=== PATIENT | male | born 1950 | race Caucasian/White ===

== ENCOUNTER 2023-08-24 19:55 | Inpatient (IN) | payer MEDICARE, OTHER, SELFPAY ==
--- NOTE | ~2023-08-24 | CT_ITS ---
EXAMINATION: CT abdomen pelvis w con DATE: 08/24/2023 21:22 INDICATION: n/v/d, generalized weakness TECHNIQUE: Computed tomography (CT) of the abdomen and pelvis was performed with 100 mL Omnipaque-350 intravenous contrast. Automated exposure control and iterative reconstruction technique were employe d. The dose-length product was 638.44 mGy-cm. COMPARISON: None. FINDINGS: Lower thorax: Pacer leads terminate in good position. Cardiomegaly. Calcified areas of chronic myocar dial infarction. Dependent atelectasis. Liver: Enlarged. Diffuse fatty infiltration. Biliary/Gallbladder: Gallbladder is normal. No bile duct dilation. Pancreas: No mass or duct dilation. Spleen: Normal. Adrenals:No mass. Kidneys: No suspicious mass, obstructing stone, or hydronephrosis. Simple left midpole cyst. Exophyti c 11 mm hemorrhagic lower pole cyst. Bilateral subcentimeter hypodensities, too small to characterize but most likely represent cysts. GI tract: Mild distal esophageal and gastric wall edema. No small or large bowel dilation. Normal shante endix. Mesentery/Peritoneum: No ascites, mass, or free air. Retroperitoneum: No mass. Atherosclerotic abdominal aortic and/or arterial calcifications. Pelvis: Moderate bladder wall thickening. Prostate enlargement and prostate brachytherapy implants. Soft Tissues: Soft tissues and body wall unremarkable. Bones: No acute osseous finding. IMPRESSION: Mild esophagitis/gastritis. Hepatomegaly with steatosis. Cystitis versus urinary bladder wall thickening from outlet obstruction. Reviewed, dictated and finalized at location K.
--- NOTE | ~2023-08-24 | XR_ITS ---
EXAMINATION: XR chest 2V Exam Date/Time: 08/24/2023 20:40 CDT HISTORY: weakness WITH N/V X 2 DAYS Comparison: None. RESULT: Lines, tubes, and devices: Left chest pacer/AICD, with intact leads. Coronary stenting. Lungs and pleura: Moderate diffuse reticular opacities and mild cuffing. Cardiomediastinal silhouette: Stable. Other: No acute osseous or upper abdominal finding. IMPRESSION: Pulmonary opacities may represent mesentery bronchiolitis or interstitial edema. Reviewed, dictated and finalized at location K. IMPRESSION: Pulmonary opacities may represent mesentery bronchiolitis or interstitial edema .
--- NOTE | ~2023-08-24 | XR_ITS ---
EXAMINATION: XR chest 1V portable DATE: 08/29/2023 11:00 INDICATION: Pulmonary edema. TECHNIQUE: A single frontal view of the chest was obtained. COMPARISON: Chest 2 views 08/24/2023, CT abdomen and pelvis 08/24/2023 FINDINGS: There is a diffuse interstitial pattern, consistent mild pulmonary edema. There are airspac e opacities are moderate midlung zone. There is a small right pleural effusion. No pneumothorax. Card iomegaly is noted. There is a left chest wall pacer/defibrillator with leads in the right atrium and right ventricle. IMPRESSION: 1. Mild pulmonary edema. 2. Worsened airspace opacities in right midlung zone, consistent with atelectasis versus pneumonia. 3. New small right pleural effusion. 4. Cardiomegaly. Reviewed, dictated and finalized at location A. IMPRESSION: 1. Mild pulmonary edema. 2. Worsened airspace opacities in right midlung zone, consistent with atelectas is versus pneumonia. 3. New small right pleural effusion. 4. Cardiomegaly.
--- NOTE | ~2023-08-24 | US_ITS ---
EXAMINATION: US abdomen limited DATE: 08/28/2023 14:18 INDICATION: Abdominal pain, nausea and vomiting and elevated liver enzymes. TECHNIQUE: Multiple grayscale and Doppler ultrasound images of the abdomen were obtained. COMPARISON: CT dated 08/24/2023 FINDINGS: The pancreatic head and body are normal in appearance. The pancreatic tail is not visualized. Liver has normal echogenicity and contour, with a smooth surface. No liver lesion identified. No intrahepat ic biliary duct dilation suspected. Portal venous flow was seen in the hepatopetal, normal direction but with increased portal venous pulsatility which can be seen with congestive heart failure, tricusp id regurgitation or other cause of elevated right heart pressure. There is a tiny amount of perihepat ic ascites. Visualized proximal to mid inferior vena cava and proximal aorta are normal. There appear s to be some mild gallbladder wall thickening. There is no cholelithiasis. The common bile duct measu res 5 mm, which is normal. Sonographic Dash sign was reported as negative by the blasting gang miner. IMPRESSION: 1. Borderline gallbladder wall thickening without evident cholelithiasis or sonographic Dash sign t o suggest acute cholecystitis. This is nonspecific and can be seen with chronic cholecystitis, conges tive heart failure, liver disease, renal failure, sepsis or other generalized edema forming states. W ould favor congestive heart failure given the enlargement of the heart on prior CT and the increased portal venous pulsatility. 2. Trace amount of perihepatic ascites. Reviewed, dictated and finalized at location A. IMPRESSION: 1. Borderline gallbladder wall thickening without evident cholelithiasis or son ographic Dash sign to suggest acute cholecystitis. This is nonspecific and ca n be seen with chronic cholecystitis, congestive heart failure, liver disease, renal failure, sepsis or other generalized edema forming states. Would favor co ngestive heart failure given the enlargement of the heart on prior CT and the i ncreased portal venous pulsatility. 2. Trace amount of perihepatic ascites.
--- NOTE | 2023-08-24 19:43 | ECG_ITS ---
SEE SCANNED COPY FOR CONFIRMED REPORT MTDD
[2023-08-24 20:02] VITALS: BP 106/59; PULSE 65; RESP 17; TEMP 37.1; O2SAT 95
--- NOTE | 2023-08-24 20:05 | ECG_ITS ---
SEE SCANNED COPY FOR CONFIRMED REPORT MTDD
--- NOTE | 2023-08-24 20:15 | PC.NURSE ---
Registration incorrectly entered patient information.
--- NOTE | 2023-08-24 20:28 | ED.WEAKNESS ---
HPI - Weakness General Chief complaint: Weakness Stated complaint: Weakness Time Seen by Provider: 08/24/23 20:05 History of Present Illness HPI Narrative: 72-year-old male with reported history of hypertension, hyperlipidemia, diabetes, CAD, mi in 2003, s/p stent placement and pacemaker placement presents to emergency department for generalized weakness. Patient is a poor historian and is not here with family. It is difficult to get a thorough history. He states he has been having generalized weakness, nausea, vomiting and diarrhea intermittently for 2 days. He presents with discharge paperwork from [facility] where he was discharged within the past week. Discharge paperwork has instructions regarding a CVA. Upon questioning, patient states he went to his PCP's office a week ago for nausea and vomiting, while he was being evaluated by his PCP he ?fell out?. States he was sent in an ambulance to [facility] but is unsure what he was diagnosed with. Patient is reporting intermittent episodes of nausea and vomiting as well as diarrhea. He is complaining for dizziness which he describes as lightheadedness as opposed to vertigo. He denies chest pain or shortness of breath, focal abdominal pain, fever, cough or congestion, dysuria or hematuria. Denies prior abdominal surgeries. Related Data Home Medications Medication Instructions Recorded Confirmed apixaban 5 mg tablet 5 mg PO BID 08/24/23 08/24/23 aspirin 81 mg tablet 81 mg PO DAILY 08/24/23 08/24/23 bumetanide 1 mg tablet 1 mg PO BID 08/24/23 digoxin 125 mcg (0.125 mg) tablet 125 mcg PO DAILY 08/24/23 empagliflozin 25 mg tablet 25 mg PO DAILY 08/24/23 eplerenone 25 mg tablet 25 mg PO DAILY 08/24/23 gabapentin 300 mg tablet 300 mg PO TID 08/24/23 08/24/23 imiquimod 5 % topical cream packet 1 applic topical 2XW 08/24/23 insulin aspart U-100 100 unit/mL 15 unit subcut Q12H 08/24/23 subcutaneous solution isosorbide mononitrate 30 mg 30 mg PO DAILY 08/24/23 tablet,extended release 24 hr levothyroxine 100 mcg tablet 100 mcg PO DAILY 08/24/23 lisinopril 10 mg tablet 10 mg PO DAILY 08/24/23 metoprolol succinate 100 mg 100 mg PO DAILY 08/24/23 tablet,extended release 24 hr niacin 500 mg tablet (Niacor) mg 08/24/23 nitroglycerin 0.4 mg sublingual 0.4 mg sublingual Q5M PRN Chest 08/24/23 tablet Pain omega-3 fatty acids 1,000 mg PO DAILY 08/24/23 omeprazole 20 mg capsule,delayed 20 mg PO BID 08/24/23 release polyethylene glycol 3350 17 17 g PO DAILY 08/24/23 gram/dose oral powder rosuvastatin 40 mg tablet 40 mg PO DAILY 08/24/23 Allergies Allergy/AdvReac Type Severity Reaction Status Date / Time atorvastatin Allergy Muscle Pain Verified 08/24/23 20:10 carvedilol [From Coreg] Allergy Hypotension Verified 08/24/23 20:10 codeine AdvReac Other Verified 08/24/23 20:10 metformin AdvReac Other Verified 08/24/23 20:10 Review of Systems Review of Systems: CONSTITUTIONAL: Denies fever, chills, or sweats. EYES: Denies visual changes, redness, or discharge. ENT: Denies rhinorrhea, congestion, sore throat, or otalgia. CARDIOVASCULAR: Denies chest pain, palpitations, or edema. RESPIRATORY: Denies cough or dyspnea. GASTROINTESTINAL: See HPI GENITOURINARY: Denies dysuria or hematuria. SKIN: Denies rash or itching. MUSCULOSKELETAL: Denies back pain, joint pain, or myalgia. NEUROLOGIC: Denies headache, numbness, or weakness. PSYCHIATRIC: Denies anxiety or depression. Exam Narrative: GENERAL: Well-appearing, well-nourished, and in no acute distress. HEAD: Normocephalic, atraumatic. EYES: PERRLA and EOMI. ENT: Nares clear, no rhinorrhea or epistaxis. Mucous membranes moist. NECK: Supple. CHEST: Clear to auscultation. No respiratory distress. HEART: Regular rate and rhythm. No murmur heard. Normal peripheral pulses. ABDOMEN: Soft, nontender, nondistended, normal active bowel sounds. No rebound, guarding or rigidity. EXTREMITIES: Normal range of motion. No edema. SKIN:
[2023-08-24] MEDS: SODIUM CHLORIDE 0.9% IV 1,000 ML 999 ML IV CONT ×2 (20:33→20:34)
[2023-08-24 20:43] LABS: Basophils Percent Auto 0.3 % (0.2-1.2); Eosinophils Absolute Auto 0.1 K/mm3 (0-0.3); Eosinophils Percent Auto 0.9 % (0-4.4); Hematocrit 47.9 % (42.0-52.0); Hemoglobin 15.4 g/dL (14.0-18.0); Immature Granulocyte Absolute 0.01 K/mm3 (0.00-0.031); Immature Granulocyte Percent A 0.2 % (0-0.5); Immature Platelet Fraction Pct 4.4 % (0.9-11.2); Lymphocytes Percent Auto 3.2 % (18.3-44.2); Mean Corpuscular HGB Conc 32.2 g/dl (32-36); Mean Corpuscular Hemoglobin 29.8 pg (26-34); Mean Corpuscular Volume 92.8 fl (80-100); Mean Platelet Volume 11.6 fl (7.4-10.4); Monocytes Absolute Auto 0.3 K/mm3 (0.1-0.6); Monocytes Percent Auto 5.4 % (2.6-8.5); Neutrophils Absolute Auto 5.7 K/mm3 (1.3-6.7); Platelet Count Result 124 k/mm3 (150-375); Red Blood Count 5.16 M/mm3 (4.6-6.20); White Blood Count 6.3 K/mm3 (4.5-10.0)
[2023-08-24 20:52] LABS: Alanine Aminotransferase 17 U/L (6-50); Albumin Level 4.3 g/dL (3.5-5.1); Alkaline Phosphatase 62 U/L (38-126); Anion Gap 10 mmol/L (4-12); Aspartate Amino Transferase 23 U/L (17-59); Bilirubin,Total 0.8 mg/dL (0.2-1.3); Blood Urea Nitrogen 44 mg/dL (9-20); Calcium 8.8 mg/dL (8.4-10.2); Carbon Dioxide 22 mmol/L (22-30); Chloride 103 mmol/L (98-107); Estimated CRCL calculation 38 ml/min; Estimated Glomerular Filt Rate 42; Glucose 257 mg/dL (65-110); INR 1.2; Lipase 72 U/L (23-300); Magnesium 1.9 mg/dL (1.6-2.3); Potassium 4.7 mmol/L (3.4-5.0); Prothrombin Time 16.3 Seconds (11.1-14.7); Sodium 135 mmol/L (137-145)
[2023-08-24 20:53] LABS: Partial Thromboplastin Time 24.8 Seconds (22.3-36.8)
[2023-08-24 21:05] LABS: Lactic Acid Reflex 1.7 mmol/L (0.7-2.0)
[2023-08-24 21:08] LABS: Troponin I 0.046 ng/mL (0.000-0.034)
[2023-08-24 21:38] LABS: Appearance Urine Clear (Clear); Bilirubin Urine Negative (Negative); Blood Urine Negative (Negative); Color Urine Yellow (Yellow); Glucose Urine UA 3+ mg/dL (Negative); Ketones Urine Negative (Negative); Leukocyte Esterase Ur Negative LEU/UL (Negative); Nitrate Urine Negative (Negative); Protein Urine Negative (Negative); Specific Grav Ur 1.024 (1.001-1.035); pH Urine 5.5 (5.0-9.0)
[2023-08-24 21:40] LABS: Add Urine Microscopic? YES
[2023-08-24 22:11] LABS: Influenza A QL RT-PCR Negative (Negative); Influenza B QL RT-PCR Negative (Negative); RSV RNA, RT-PCR Negative (Negative); SARS-CoV-2 RNA PCR Negative (Negative)
[2023-08-24 22:19] VITALS: BP 95/53; PULSE 61; RESP 17; O2SAT 94
[2023-08-24 22:20] VITALS: PULSE 61
--- NOTE | 2023-08-24 23:12 | PM.IMHP ---
H&P: HPI History of Present Illness Date/Time: 08/24/23 23:12 Chief Complaint: generalized malaise Narrative: This is a 72-year-old male with past medical history significant for insulin-dependent diabetes mellitus, congestive heart failure, chronic kidney disease. patient is a poor historian and cannot really give any details about his medical history presents to the emergency room due to nausea vomiting and diarrhea. Preliminary workup was significant for chest x-ray with infiltrates. CT of abdomen and pelvis was low yielding. Patient has been admitted for further evaluation management and treatment. EXAMINATION:? XR chest 2V Exam Date/Time:? 08/24/2023 20:40 CDT HISTORY: weakness WITH N/V X 2 DAYS ? Comparison:? None. RESULT: Lines, tubes, and devices:? Left chest pacer/AICD, with intact leads. Coronary stenting. Lungs and pleura:? Moderate diffuse reticular opacities and mild cuffing. Cardiomediastinal silhouette:? Stable. Other:? No acute osseous or upper abdominal finding. ? IMPRESSION: Pulmonary opacities may represent mesentery bronchiolitis or interstitial edema. EXAMINATION: CT abdomen pelvis w con DATE: 08/24/2023 21:22 INDICATION: n/v/d, generalized weakness TECHNIQUE: Computed tomography (CT) of the abdomen and pelvis was performed with 100 mL Omnipaque-350 intravenous contrast. Automated exposure control and iterative reconstruction technique were employed. The dose-length product was 638.44 mGy-cm. COMPARISON: None. FINDINGS: Lower thorax: Pacer leads terminate in good position. Cardiomegaly. Calcified areas of chronic myocardial infarction. Dependent atelectasis. Liver: Enlarged. Diffuse fatty infiltration.? Biliary/Gallbladder: Gallbladder is normal. No bile duct dilation. Pancreas: No mass or duct dilation. Spleen: Normal. Adrenals:No mass. Kidneys: No suspicious mass, obstructing stone, or hydronephrosis. Simple left midpole cyst. Exophytic 11 mm hemorrhagic lower pole cyst. Bilateral subcentimeter hypodensities, too small to characterize but most likely represent cysts. GI tract: Mild distal esophageal and gastric wall edema. No small or large bowel dilation. Normal appendix. Mesentery/Peritoneum: No ascites, mass, or free air. Retroperitoneum: No mass. Atherosclerotic abdominal aortic and/or arterial calcifications. Pelvis: Moderate bladder wall thickening. Prostate enlargement and prostate brachytherapy implants. Soft Tissues: Soft tissues and body wall unremarkable. Bones:? No acute osseous finding. IMPRESSION: Mild esophagitis/gastritis. Hepatomegaly with steatosis. Cystitis versus urinary bladder wall thickening from outlet obstruction. Review of Systems Review of Systems: Nausea, vomiting, diarrhea Meds Home Medications and Allergies Home Medications Medication Instructions Recorded Confirmed Type apixaban 5 mg tablet 5 mg PO BID 08/24/23 08/24/23 History aspirin 81 mg tablet 81 mg PO DAILY 08/24/23 08/24/23 History bumetanide 1 mg tablet 1 mg PO BID 08/24/23 History digoxin 125 mcg (0.125 mg) tablet 125 mcg PO DAILY 08/24/23 History empagliflozin 25 mg tablet 25 mg PO DAILY 08/24/23 History eplerenone 25 mg tablet 25 mg PO DAILY 08/24/23 History gabapentin 300 mg tablet 300 mg PO TID 08/24/23 08/24/23 History imiquimod 5 % topical cream packet 1 applic topical 2XW 08/24/23 History insulin aspart U-100 100 unit/mL 15 unit subcut Q12H 08/24/23 History subcutaneous solution isosorbide mononitrate 30 mg 30 mg PO DAILY 08/24/23 History tablet,extended release 24 hr levothyroxine 100 mcg tablet 100 mcg PO DAILY 08/24/23 History lisinopril 10 mg tablet 10 mg PO DAILY 08/24/23 History metoprolol succinate 100 mg 100 mg PO DAILY 08/24/23 History tablet,extended release 24 hr niacin 500 mg tablet (Niacor) mg 08/24/23 History nitroglycerin 0.4 mg sublingual 0.4 mg sublingual Q5M PRN Chest 08/24/23 History tablet Pain omega-3 fatty acids 1,000
[2023-08-24 23:45] VITALS: BP 110/68; PULSE 63; RESP 20; O2SAT 94
[2023-08-24 23:54] LABS: Troponin I 0.058 ng/mL (0.000-0.034)
[2023-08-25] VITALS (23 sets, daily range): BP systolic 92–134; BP diastolic 44–94; PULSE 65–89; RESP 11–20; TEMP 36.2–36.9; O2SAT 94–100; BMI 28.7; BMI 30.1
[2023-08-25] MEDS: SODIUM CHLORIDE 0.9% IV 1,000 ML 999 ML IV CONT (00:16)
[2023-08-25] MEDS: PIPERACILLN/TAZ 3.375GM/NS50ML 3.375 GM/50 ML BAG IVPB (00:16)
[2023-08-25 03:45] LABS: Troponin I 0.065 ng/mL (0.000-0.034)
--- NOTE | 2023-08-25 07:30 | PC.NURSE ---
[facility] breakfast tray ordered
--- NOTE | 2023-08-25 07:40 | PC.NURSE ---
blood sugar was 148 at 0739
[2023-08-25 07:41] LABS: Glucose Point of Care 148 mg/dl (65-105)
--- NOTE | 2023-08-25 11:08 | PM.IMPN ---
Progress Note: A&P Assessment and Plan (1) Nausea & vomiting: Qualifiers: Vomiting type: unspecified Qualified Code(s): R11.2 - Nausea with vomiting, unspecified Code(s): R11.2 - Nausea with vomiting, unspecified Status: Acute (2) Diarrhea: Qualifiers: Diarrhea type: unspecified type Qualified Code(s): R19.7 - Diarrhea, unspecified Code(s): R19.7 - Diarrhea, unspecified Status: Acute (3) KORIN (acute kidney injury): Code(s): N17.9 - Acute kidney failure, unspecified Status: Acute (4) Pneumonia: Qualifiers: Laterality: bilateral Lung location: unspecified part of lung Pneumonia type: aspiration pneumonia Code(s): J18.9 - Pneumonia, unspecified organism Status: Acute Plan This is a 72-year-old male with past medical history significant for insulin-dependent diabetes mellitus, congestive heart failure,? chronic kidney disease. patient is a poor historian and cannot really give any details about his? medical history presents to the emergency room due to nausea vomiting and diarrhea.? Preliminary workup was significant for chest x-ray with infiltrates.? CT of abdomen and pelvis was low yielding.? Patient has been admitted for further evaluation management and treatment. (1) Pneumonia: ?Qualifiers: ?Laterality:?bilateral??Lung location:?unspecified part of lung??Pneumonia type:?aspiration pneumonia ?Code(s): J18.9 - Pneumonia, unspecified organism ?Status:?Acute ?Assessment and Plan: ?Received Zosyn in the ED Change to ceftriaxone and Flagyl IV acute infective gastroenteritis patient started have abdomen pain, nausea vomiting diarrhea about 2 days ago, after eating food of poor-quality now patient is afebrile. felt nauseous denies abdomen pain and vomiting blood culture and stool culture pending Suspecting acute infective gastroenteritis Received Zosyn in the ED changes ceftriaxone Flagyl IV (4) KORIN (acute kidney injury): ?Code(s): N17.9 - Acute kidney failure, unspecified ?Status:?Acute ?Assessment and Plan: ?gentle hydration ?hold bumetanide ?hold lisinopril dehydration and hypotension Blood pressure soft, possible due to inadequate intake and nausea vomiting received normal saline bolused 3 L Start normal saline IV 150 mL/hour monitor sign and symptom of fluid overload Subjective Date/time seen: 08/25/23 11:08 Interval history: Patient is afebrile, blood pressure soft, no O2 desaturation on room air, patient still feeling nauseous, denies vomiting. Patient still has diarrhea. Patient denies abdomen pain. Patient stated he started have abdomen pain, nausea vomiting diarrhea about 2 days ago Arb eating food of poor quality Exam Narrative: GENERAL: Pleasant, in no acute distress. Well-nourished. - EYES: EOMI. Anicteric. - HENT: Moist mucous membranes. - LUNGS: Clear to auscultation bilaterally, no wheezing, rhonchi, or rales. - CARDIOVASCULAR: Regular rate and rhythm. No murmur. No JVD. - ABDOMEN: Soft, non-tender and non-distended. No palpable masses. - EXTREMITIES: No edema. Peripheral pulses 2+. Non-tender. - NEUROLOGIC: No focal neurological deficits. CN II-XII grossly intact. - PSYCHIATRIC: Awake, Alert and oriented x 3. Appropriate mood and affect. - SKIN: No rashes or lesions. Warm. - LYMPH: No cervical lymphadenopathy. Objective Data Vital Signs Vital Signs: Vital Signs - 24 hr 08/24/23 20:02 08/24/23 22:19 08/24/23 22:20 Temperature 98.7 F Pulse Rate 65 61 61 Respiratory Rate 17 17 Blood Pressure 106/59 L 95/53 L Pulse Oximetry 95 94 Oxygen Delivery Room Air 08/24/23 23:45 08/25/23 04:50 08/25/23 06:30 Temperature Pulse Rate 63 72 68 Respiratory Rate 20 15 16 Blood Pressure 110/68 113/68 114/65 Pulse Oximetry 94 96 97 Oxygen Delivery 08/25/23 07:28 08/25/23 09:11 08/25/23 09:56 Temperature 98.4 F Pul
[2023-08-25 11:19] LABS: Basophils Percent Auto 0.4 % (0.2-1.2); Eosinophils Percent Auto 0.4 % (0-4.4); Hemoglobin 13.9 g/dL (14.0-18.0); Immature Granulocyte Absolute 0.02 K/mm3 (0.00-0.031); Immature Granulocyte Percent A 0.3 % (0-0.5); Lymphocytes Absolute Auto 0.32 K/mm3 (0.9-3.2); Lymphocytes Percent Auto 4.8 % (18.3-44.2); Mean Corpuscular HGB Conc 30.2 g/dl (32-36); Mean Corpuscular Hemoglobin 29.8 pg (26-34); Mean Corpuscular Volume 98.5 fl (80-100); Mean Platelet Volume 11.7 fl (7.4-10.4); Monocytes Absolute Auto 0.5 K/mm3 (0.1-0.6); Monocytes Percent Auto 7.3 % (2.6-8.5); Neutrophils Absolute Auto 5.8 K/mm3 (1.3-6.7); Neutrophils Percent Auto 86.8 % (45.5-73.1); Platelet Count Result 146 k/mm3 (150-375); Red Blood Count 4.67 M/mm3 (4.6-6.20); Red Cell Distribution Width 16.5 % (11.5-14.5); White Blood Count 6.7 K/mm3 (4.5-10.0)
[2023-08-25 11:27] LABS: Anion Gap 10 mmol/L (4-12); Blood Urea Nitrogen 39 mg/dL (9-20); Calcium 8.4 mg/dL (8.4-10.2); Carbon Dioxide 21 mmol/L (22-30); Chloride 105 mmol/L (98-107); Estimated CRCL calculation 34 ml/min; Estimated Glomerular Filt Rate 37; Glucose 178 mg/dL (65-110); Magnesium 1.9 mg/dL (1.6-2.3); Potassium 4.6 mmol/L (3.4-5.0); Sodium 136 mmol/L (137-145)
[2023-08-25] MEDS: SODIUM CHLORIDE 0.9% IV 1,000 ML 150 ML IV CONT ×2 (11:36→20:43)
[2023-08-25] MEDS: cefTRIAXone 2 GM/NS 100 ML 2 GM/100 ML BAG IVPB (11:37)
[2023-08-25 12:53] LABS: Platelet Estimate Slightly Decreased (Adequate)
[2023-08-25 12:54] LABS: Burr Cells 1+; Ovalocytes 1+; Schistocytes None Seen
--- NOTE | 2023-08-25 13:26 | ADMGEN ---
This patient, López Allan, was admitted to IMU Room 231-01. Patient/family oriented to hospital policies and general routines including ID bracelet, bed and alarms, visiting hours, pain management, procedures, bathroom and other care routines, personal items, smoking policy, room service/diet, and visiting hours. Information on how to activate the Rapid Response Team has been discussed. Patient/Family are encouraged to report perceived risks to care and to ask questions if they do not understand what they are told or what they should do.
[2023-08-25] MEDS: metroNIDAZOLE 500 MG/ISO 100ML 500 MG/100 ML BAG 100 MG IVPB ×2 (13:44→21:01)
[2023-08-25 22:45] LABS: Glucose Point of Care 155 mg/dl (65-105)
[2023-08-25] MEDS: INSULIN ASPART (*BKC) 100 UNITS/ML 15 UNITS SUB-Q (22:46)
[2023-08-26] VITALS (17 sets, daily range): BP systolic 96–130; BP diastolic 47–82; PULSE 71–97; RESP 18–20; TEMP 35.8–36.6; O2SAT 95–99
--- NOTE | 2023-08-26 | ECHO_ITS ---
Patient Info Name: López Allan Age: 72 years : 1950 Gender: Male Ht: 70 in Wt: 211 lbs BSA: 2.20 m2 HR: 96 bpm BP: 105 / 68 mmHg Heart Rhythm: Sinus Rhythm Technical Quality: Fair Exam Date: 08/26/2023 1:47 PM Exam Location: Echo Lab Patient Status: Inpatient Admit Date: 08/26/2023 Staff Ordering Physician: Judy Gupta APRN [employer] Lieutenant: Tiff Ramires RDCS Attending Provider: Marcial Blake MD Referring Physician: Alonso PERSON; Exam Type: CA echo doppler color flow Study Info Indications - Hypotension - Elevated Trops Complete two-dimensional, color flow and Doppler transthoracic echocardiogram is performed. Summary 1. Left ventricular chamber dimension is severely enlarged. 2. Left ventricular systolic function is severely reduced, estimated at <15%. 3. The left ventricular diastolic function is grade III diastolic dysfunction. 4. Right ventricular systolic function is reduced. 5. Left atrial chamber dimension is mildly enlarged. 6. Right atrial chamber dimension is mildly enlarged. 7. There is at least moderate mitral valve regurgitation, which may be underestimated due to the eccentricity of the jet. 8. There is mild tricuspid valve regurgitation. Left Ventricle Left ventricular chamber dimension is severely enlarged. Left ventricular systolic function is severely reduced, estimated at <15%. There is no increased left ventricular wall thickness. Left ventricular septal wall motion is abnormal with septal motion related to bundle branch block. The left ventricular diastolic function is grade III diastolic dysfunction. Right Ventricle Linear artifact in right ventricle suggestive of catheter(s), pacemaker lead(s), or ICD lead(s). Right ventricular chamber dimension is normal. Right ventricular systolic function is reduced. Left Atria Left atrial chamber dimension is mildly enlarged. Right Atria Linear artifact in the right atrium suggestive of catheter(s), pacemaker lead(s), or ICD lead(s). Right atrial chamber dimension is mildly enlarged. Atrial Septum Intact interatrial septum visualized by color flow imaging. Aortic Valve The aortic valve is probable trileaflet. There is no aortic valve stenosis. There is no aortic valve regurgitation. There is mild aortic valve calcification. Pulmonic Valve The pulmonic valve is not well visualized. There is trace pulmonic regurgitation. Mitral Valve There is at least moderate mitral valve regurgitation, which may be underestimated due to the eccentricity of the jet. The mitral valve annulus is mildly calcified. Tricuspid Valve There is mild tricuspid valve regurgitation. Pericardium/Pleural There is no pericardial effusion. Inferior Vena Cava Inferior vena cava is not well visualized. Aorta The aortic root size at the sinus of Valsalva is normal. Report Signatures
[2023-08-26] MEDS: SODIUM CHLORIDE 0.9% IV 1,000 ML 150 ML IV CONT ×3 (03:17→18:15)
[2023-08-26 04:19] LABS: Basophils Percent Auto 0.4 % (0.2-1.2); Eosinophils Absolute Auto 0.1 K/mm3 (0-0.3); Eosinophils Percent Auto 1.9 % (0-4.4); Hematocrit 37.4 % (42.0-52.0); Hemoglobin 11.5 g/dL (14.0-18.0); Immature Granulocyte Absolute 0.02 K/mm3 (0.00-0.031); Immature Granulocyte Percent A 0.4 % (0-0.5); Lymphocytes Absolute Auto 1.06 K/mm3 (0.9-3.2); Lymphocytes Percent Auto 20.2 % (18.3-44.2); Mean Corpuscular HGB Conc 30.7 g/dl (32-36); Mean Corpuscular Hemoglobin 30.1 pg (26-34); Mean Corpuscular Volume 97.9 fl (80-100); Mean Platelet Volume 10.6 fl (7.4-10.4); Monocytes Absolute Auto 0.7 K/mm3 (0.1-0.6); Monocytes Percent Auto 13.9 % (2.6-8.5); Neutrophils Absolute Auto 3.3 K/mm3 (1.3-6.7); Neutrophils Percent Auto 63.2 % (45.5-73.1); Platelet Count Result 115 k/mm3 (150-375); Red Blood Count 3.82 M/mm3 (4.6-6.20); Red Cell Distribution Width 16.2 % (11.5-14.5); White Blood Count 5.3 K/mm3 (4.5-10.0)
[2023-08-26 04:41] LABS: Anion Gap 10 mmol/L (4-12); Blood Urea Nitrogen 22 mg/dL (9-20); Calcium 7.9 mg/dL (8.4-10.2); Carbon Dioxide 15 mmol/L (22-30); Chloride 113 mmol/L (98-107); Estimated CRCL calculation 56 ml/min; Estimated Glomerular Filt Rate 59; Glucose 120 mg/dL (65-110); Phosphorus 3.1 mg/dL (2.5-4.5); Sodium 138 mmol/L (137-145)
[2023-08-26] MEDS: metroNIDAZOLE 500 MG/ISO 100ML 500 MG/100 ML BAG 100 MG IVPB ×3 (05:48→21:04)
[2023-08-26 08:15] LABS: Glucose Point of Care 138 mg/dl (65-105)
[2023-08-26] MEDS: cefTRIAXone 2 GM/NS 100 ML 2 GM/100 ML BAG IVPB (08:32)
[2023-08-26 11:32] LABS: Hemoglobin A1C 9.9 % (<5.7)
[2023-08-26 11:42] LABS: Troponin I 0.059 ng/mL (0.000-0.034)
[2023-08-26 11:54] LABS: Glucose Point of Care 145 mg/dl (65-105)
--- NOTE | 2023-08-26 14:44 | P.PNIM_ITS ---
Progress Note: A&P Assessment and Plan (1) Nausea & vomiting: Qualifiers: Vomiting type: unspecified Qualified Code(s): R11.2 - Nausea with vomiting, unspecified Code(s): R11.2 - Nausea with vomiting, unspecified Status: Acute (2) Diarrhea: Qualifiers: Diarrhea type: unspecified type Qualified Code(s): R19.7 - Diarrhea, unspecified Code(s): R19.7 - Diarrhea, unspecified Status: Acute (3) KORIN (acute kidney injury): Code(s): N17.9 - Acute kidney failure, unspecified Status: Acute (4) Pneumonia: Qualifiers: Laterality: bilateral Lung location: unspecified part of lung Pneumonia type: aspiration pneumonia Code(s): J18.9 - Pneumonia, unspecified organism Status: Acute Time Spent With Patient Time: Pneumonia * Chest x-ray he with infiltrate * incentive spirometry while awake. * influenza/COVID/RSV negative * Rocephin and Flagyl * CMP/CBC daily gastroenteritis * ?patient started have abdomen pain, nausea vomiting diarrhea * blood culture and stool culture pending * CT ABDSuspecting acute infective gastroenteritis * Received Zosyn in the ED * ?changes ceftriaxone Flagyl IV * Pain control * IV fluids * GI consulted * advance diet as tolerated * PPI Acute kidney injury secondary to dehydration-Improving * gentle hydration * hold bumetanide * hold lisinopril * Blood pressure soft, * ?possible due to inadequate intake and nausea vomiting * ?received normal saline bolus 3 L Elevated troponin * Current downtrend peaked at 0.067 * Likely ischemic demand * EKG with no acute changes * Echocardiogram pending Diabetes * Accu-Cheks a.c. HS * sliding scale insulin * hold oral diabetic medications * Hemoglobin A1c goal less than 7 pending * Diabetic diet * consult to dietitian * Optimize Daljit inhibitors and statins. * Watch for hypoglycemia/hypoglycemic protocol ordered Code status: Full code per patient DVT prophylaxis: eliquis Stress ulcer prophylaxis: Protonix 40 BID PT/OT notes: Ambulatory Disposition: Patient admitted due to nausea vomiting and diarrhea with elevated troponins ruling out ACS, GI consulted CT abdomen was unremarkable may need EGD or colonoscopy. Patient ambulatory at this time discharge back to home when medically stable. Time with patient: 15 - 25 minutes Subjective Date/time seen: 08/26/23 14:44 Interval history: Admission: Medical Record This is a 72-year-old male with past medical history significant for insulin- dependent diabetes mellitus, congestive heart failure,? chronic kidney disease. patient is a poor historian and cannot really give any details about his? medical history presents to the emergency room due to nausea vomiting and diarrhea.? Preliminary workup was significant for chest x-ray with infiltrates.? CT of abdomen and pelvis was low yielding.? Patient has been admitted for further evaluation management and treatment. 08/25: Assumed care Patient continues to have complaints of N/V not tolerating oral intake. Patient initial troponin x 3 were trending up, F/U troponin this am was down trending likely ischemic demand EKG with no acute issues, and echo pending. GI consulted but could secondary to possible PNA vs. Gastroenteritis Review of Systems Review of Systems: All systems reviewed & are unremarkable except as noted in HPI and below Exam
--- NOTE | 2023-08-26 14:44 | PM.IMPN ---
Progress Note: A&P Assessment and Plan (1) Nausea & vomiting: Qualifiers: Vomiting type: unspecified Qualified Code(s): R11.2 - Nausea with vomiting, unspecified Code(s): R11.2 - Nausea with vomiting, unspecified Status: Acute (2) Diarrhea: Qualifiers: Diarrhea type: unspecified type Qualified Code(s): R19.7 - Diarrhea, unspecified Code(s): R19.7 - Diarrhea, unspecified Status: Acute (3) KORIN (acute kidney injury): Code(s): N17.9 - Acute kidney failure, unspecified Status: Acute (4) Pneumonia: Qualifiers: Laterality: bilateral Lung location: unspecified part of lung Pneumonia type: aspiration pneumonia Code(s): J18.9 - Pneumonia, unspecified organism Status: Acute Time Spent With Patient Time: Pneumonia Chest x-ray he with infiltrate incentive spirometry while awake. influenza/COVID/RSV negative Rocephin and Flagyl CMP/CBC daily gastroenteritis ?patient started have abdomen pain, nausea vomiting diarrhea blood culture and stool culture pending CT ABDSuspecting acute infective gastroenteritis Received Zosyn in the ED ?changes ceftriaxone Flagyl IV Pain control IV fluids GI consulted advance diet as tolerated PPI Acute kidney injury secondary to dehydration-Improving gentle hydration hold bumetanide hold lisinopril Blood pressure soft, ?possible due to inadequate intake and nausea vomiting ?received normal saline bolus 3 L Elevated troponin Current downtrend peaked at 0.067 Likely ischemic demand EKG with no acute changes Echocardiogram pending Diabetes Accu-Cheks a.c. HS sliding scale insulin hold oral diabetic medications Hemoglobin A1c goal less than 7 pending Diabetic diet consult to dietitian Optimize Daljit inhibitors and statins. Watch for hypoglycemia/hypoglycemic protocol ordered Code status: Full code per patient DVT prophylaxis: eliquis Stress ulcer prophylaxis: Protonix 40 BID PT/OT notes: Ambulatory Disposition: Patient admitted due to nausea vomiting and diarrhea with elevated troponins ruling out ACS, GI consulted CT abdomen was unremarkable may need EGD or colonoscopy. Patient ambulatory at this time discharge back to home when medically stable. Time with patient: 15 - 25 minutes Subjective Date/time seen: 08/26/23 14:44 Interval history: Admission: Medical Record This is a 72-year-old male with past medical history significant for insulin-dependent diabetes mellitus, congestive heart failure,? chronic kidney disease. patient is a poor historian and cannot really give any details about his? medical history presents to the emergency room due to nausea vomiting and diarrhea.? Preliminary workup was significant for chest x-ray with infiltrates.? CT of abdomen and pelvis was low yielding.? Patient has been admitted for further evaluation management and treatment. 08/25: Assumed care Patient continues to have complaints of N/V not tolerating oral intake. Patient initial troponin x 3 were trending up, F/U troponin this am was down trending likely ischemic demand EKG with no acute issues, and echo pending. GI consulted but could secondary to possible PNA vs. Gastroenteritis Review of Systems Review of Systems: All systems reviewed & are unremarkable except as noted in HPI and below Exam Narrative: Physical Exam: GENERAL: Alert and oriented x 3. No acute distress. EYES: EOMI. No scleral icterus. PERRLA. HEENT: Moist mucous membranes. LUNGS: Clear to auscultation bilaterally. No accessory muscle use. CARDIOVASCULAR: Regular rate and rhythm. No murmur. No JVD. S1-S2 ABDOMEN: Soft, mild tenderness and non-distended. No palpable masses. EXTREMITIES: No edema. Non-tender SKIN: No rashes or lesions. Skin warm, dry. NEUROLOGIC: No focal neurological deficits. CN II-XII grossly intact PSYCHIATRIC: Appropria
--- NOTE | 2023-08-26 15:07 | WPDGICN ---
Assessment and Plan Assessment and plan (1) Nausea & vomiting: Qualifiers: Vomiting type: unspecified Qualified Code(s): R11.2 - Nausea with vomiting, unspecified Code(s): R11.2 - Nausea with vomiting, unspecified Status: Acute Assessment and Plan: supportive care will assess with egd to assess if esophagitis, ulcer, etc also check if portal htn (noted low platelets but normal liver enzymes), fatty liver by CT scan (2) Diarrhea: Qualifiers: Diarrhea type: unspecified type Qualified Code(s): R19.7 - Diarrhea, unspecified Code(s): R19.7 - Diarrhea, unspecified Status: Acute (3) Abnormal CT scan, esophagus: Code(s): R93.3 - Abnormal findings on diagnostic imaging of other parts of digestive tract Status: Acute Assessment and Plan: ? mild esophagitis will assess with egd (4) KORIN (acute kidney injury): Code(s): N17.9 - Acute kidney failure, unspecified Status: Acute Assessment and Plan: improved after fluids (5) Thrombocytopenia: Code(s): D69.6 - Thrombocytopenia, unspecified Status: Acute Assessment and Plan: monitor check with egd if portal htn (6) Diabetes mellitus: Code(s): E11.9 - Type 2 diabetes mellitus without complications Status: Acute (7) Fatty liver: Code(s): K76.0 - Fatty (change of) liver, not elsewhere classified Status: Acute GI Consult Note Consult date/time: 08/26/23 15:07 Reason for consult: nausea, diarrhea. HPI: López Allan is a 72 year old male with history of hypertension, hyperlipidemia, diabetes, CAD, mi in 2003, s/p stent placement and pacemaker placement came to the emergency department for generalized weakness.? Patient is a poor historian, last few days with generalized weakness, nausea, vomiting and diarrhea. Noted that had recent hospitalization at [facility] and discharged with possible stroke. He is complaining for dizziness which he describes as lightheadedness as opposed to vertigo. Creat 1.8, CT scan showed possible esophagitis/gastritis, fatty liver, platelet 115, normal liver enzymes. He thinks that had EGD about 10 years ago. Review of Systems Constitutional: Constitutional: Reports weakness Eyes: Eyes: Denies blurry vision ENT: Reports Normal hearing present Cardiovascular: Cardiovascular: Denies chest pain Respiratory: Respiratory: Denies cough Gastrointestinal: Gastrointestinal: Reports diarrhea, Reports nausea and Reports vomiting Musculoskeletal: Musculoskeletal: Denies arthralgias Integumentary/Breasts: Skin/Breast: Denies rash Neurologic: Denies Abnormal speech present Psychiatric: Psychiatric: Denies behavioral changes [facility] Past Medical History Medical History (Updated 08/26/23 @ 15:13 by Kings Case MD) Abnormal CT scan, esophagus Diabetes mellitus Fatty liver Thrombocytopenia Family History Family History (Updated 08/25/23 @ 13:05 by Stevie Russo RN) Father Lung cancer Mother Blood loss Social History Social History Smoking status: Former smoker Tobacco type: cigarettes Smoking end date: 04/13/95 Alcohol intake: former Substance use type: does not use Do You Feel Safe in your Home?: Yes Lack of Transportation: No Lack of Food: Never True Current Housing: I Have Housing Concerned About Future Housing: No Difficulty Paying Gas/Electric Bills: No Difficulty Paying for Meds: No Currently Unemployed: No Education: High School Diploma/GED Difficulty w/ Childcare or Family Care: No Spiritual care concerns: No Meds Home Medications and Allergies Home Medications Medication Instructions Recorded Confirmed Type apixaban 5 mg tablet 5 mg PO BID 08/24/23 08/25/23 History aspirin 81 mg tablet 81 mg PO DAILY 08/24/23 08/25/23 History bumetanide 1 mg tablet 1 mg PO BID 08/24/23 08/25/23
[2023-08-26 16:26] LABS: Glucose Point of Care 146 mg/dl (65-105)
[2023-08-26] MEDS: OMEGA 3 POLYUNSAT FATTY ACIDS 1 GM CAP PO (17:28)
[2023-08-26] MEDS: GABAPENTIN 300 MG CAPSULE PO ×2 (17:28→20:01)
[2023-08-26] MEDS: ACETAMINOPHEN 325 MG TABLET 650 MG PO (19:57)
[2023-08-26] MEDS: APIXABAN 5 MG TABLET PO (20:02)
[2023-08-26 20:26] LABS: Glucose Point of Care 194 mg/dl (65-105)
[2023-08-27] VITALS (13 sets, daily range): BP systolic 101–128; BP diastolic 55–96; PULSE 80–104; RESP 18–24; TEMP 35.8–36.5; O2SAT 97–100
[2023-08-27] MEDS: ACETAMINOPHEN 325 MG TABLET 650 MG PO ×3 (00:48→22:31)
[2023-08-27] MEDS: SODIUM CHLORIDE 0.9% IV 1,000 ML 150 ML IV CONT ×3 (02:23→20:47)
[2023-08-27 05:01] LABS: Basophils Percent Auto 0.3 % (0.2-1.2); Eosinophils Absolute Auto 0.1 K/mm3 (0-0.3); Eosinophils Percent Auto 0.9 % (0-4.4); Hemoglobin 12.5 g/dL (14.0-18.0); Immature Granulocyte Absolute 0.01 K/mm3 (0.00-0.031); Immature Granulocyte Percent A 0.2 % (0-0.5); Immature Platelet Fraction Pct 5.4 % (0.9-11.2); Lymphocytes Absolute Auto 1.98 K/mm3 (0.9-3.2); Lymphocytes Percent Auto 30.3 % (18.3-44.2); Mean Corpuscular HGB Conc 30.5 g/dl (32-36); Mean Corpuscular Hemoglobin 29.8 pg (26-34); Mean Corpuscular Volume 97.6 fl (80-100); Mean Platelet Volume 11.4 fl (7.4-10.4); Monocytes Absolute Auto 0.7 K/mm3 (0.1-0.6); Monocytes Percent Auto 10.9 % (2.6-8.5); Neutrophils Absolute Auto 3.8 K/mm3 (1.3-6.7); Neutrophils Percent Auto 57.4 % (45.5-73.1); Platelet Count Result 134 k/mm3 (150-375); Red Cell Distribution Width 16.2 % (11.5-14.5); White Blood Count 6.5 K/mm3 (4.5-10.0)
[2023-08-27 05:15] LABS: Anion Gap 9 mmol/L (4-12); Blood Urea Nitrogen 19 mg/dL (9-20); Calcium 8.2 mg/dL (8.4-10.2); Carbon Dioxide 13 mmol/L (22-30); Chloride 116 mmol/L (98-107); Estimated CRCL calculation 56 ml/min; Estimated Glomerular Filt Rate 59; Glucose 175 mg/dL (65-110); Magnesium 1.9 mg/dL (1.6-2.3); Phosphorus 3.7 mg/dL (2.5-4.5); Potassium 4.3 mmol/L (3.4-5.0); Sodium 138 mmol/L (137-145)
[2023-08-27] MEDS: LEVOTHYROXINE SODIUM 100 MCG TABLET PO (05:40)
[2023-08-27] MEDS: metroNIDAZOLE 500 MG/ISO 100ML 500 MG/100 ML BAG 100 MG IVPB ×3 (05:40→20:44)
[2023-08-27 08:02] LABS: Glucose Point of Care 166 mg/dl (65-105)
[2023-08-27] MEDS: LACTATED RINGERS 1,000 ML 150 ML IV CONT (09:25)
[2023-08-27 09:26] LABS: Glucose Point of Care 158 mg/dl (65-105)
--- NOTE | 2023-08-27 09:47 | P.PNIM_ITS ---
Progress Note: A&P Assessment and Plan (1) Nausea & vomiting: Qualifiers: Vomiting type: unspecified Qualified Code(s): R11.2 - Nausea with vomiting, unspecified Code(s): R11.2 - Nausea with vomiting, unspecified Status: Acute (2) Diarrhea: Qualifiers: Diarrhea type: unspecified type Qualified Code(s): R19.7 - Diarrhea, unspecified Code(s): R19.7 - Diarrhea, unspecified Status: Acute (3) KORIN (acute kidney injury): Code(s): N17.9 - Acute kidney failure, unspecified Status: Acute (4) Pneumonia: Qualifiers: Laterality: bilateral Lung location: unspecified part of lung Pneumonia type: aspiration pneumonia Code(s): J18.9 - Pneumonia, unspecified organism Status: Acute Plan Pneumonia * Chest x-ray he with infiltrate * Recent COVID + 3 weeks ago * incentive spirometry while awake.? * influenza/COVID/RSV negative * Rocephin and Flagyl * CMP/CBC daily gastroenteritis * ?patient started have abdomen pain, nausea vomiting diarrhea * blood culture and stool culture pending * CT ABD Suspecting acute infective gastroenteritis * Received Zosyn in the ED * ?changes ceftriaxone Flagyl IV * Pain control * IV fluids * GI consulted * advance diet as tolerated * PPI 08/26 * EGD scheduled for today/ cancelled due to low EF Acute kidney injury secondary to dehydration-Improving * gentle hydration * hold bumetanide * hold lisinopril * Blood pressure soft, * ?possible due to inadequate intake and nausea vomiting * ?received normal saline bolus 3 L Elevated troponin * Current downtrend peaked at 0.067 * Likely ischemic demand * EKG with no acute changes * Echocardiogram EF <15% Cardiomyopathy * ECHO EF <15% * Pacemaker/ICD in place * secondary to radiation and chemo therapy Diabetes * ?Accu-Cheks a.c. HS * sliding scale insulin * hold oral diabetic medications * Hemoglobin A1c goal less than 7 pending * Diabetic diet * consult to dietitian * Optimize Daljit inhibitors and statins.? * Watch for hypoglycemia/hypoglycemic protocol ordered Code status:? Full code per patient DVT prophylaxis:? eliquis Stress ulcer prophylaxis:? Protonix 40 BID PT/OT notes:? Ambulatory Disposition:??Patient admitted due to nausea vomiting and diarrhea with elevated troponins and PNA. Ruled out ACS will continue to treat for PNA.? Patient ambulatory at this time discharge back to home when medically stable. Time Spent With Patient Time with patient: 15 - 25 minutes Subjective Date/time seen: 08/27/23 09:47 Interval history: Admission: Medical Record This is a 72-year-old male with past medical history significant for insulin- dependent diabetes mellitus, congestive heart failure,? chronic kidney disease. patient is a poor historian and cannot really give any details about his? medical history presents to the emergency room due to nausea vomiting and diarrhea.? Preliminary workup was significant for chest x-ray with infiltrates.? CT of abdomen and pelvis was low yielding.? Patient has been admitted for further evaluation management and treatment. 08/25: Assumed care Patient continues to have complaints of N/V not tolerating oral intake. Patient initial troponin x 3 were trending up, F/U troponin this am was down trending likely ischemic demand EKG with no acute issues, and echo pending. GI consulted but could secondary to possible PNA vs. Gastroenteritis 08/26: Patient still feels horribl
--- NOTE | 2023-08-27 09:47 | PM.IMPN ---
Progress Note: A&P Assessment and Plan (1) Nausea & vomiting: Qualifiers: Vomiting type: unspecified Qualified Code(s): R11.2 - Nausea with vomiting, unspecified Code(s): R11.2 - Nausea with vomiting, unspecified Status: Acute (2) Diarrhea: Qualifiers: Diarrhea type: unspecified type Qualified Code(s): R19.7 - Diarrhea, unspecified Code(s): R19.7 - Diarrhea, unspecified Status: Acute (3) KORIN (acute kidney injury): Code(s): N17.9 - Acute kidney failure, unspecified Status: Acute (4) Pneumonia: Qualifiers: Laterality: bilateral Lung location: unspecified part of lung Pneumonia type: aspiration pneumonia Code(s): J18.9 - Pneumonia, unspecified organism Status: Acute Plan Pneumonia Chest x-ray he with infiltrate Recent COVID + 3 weeks ago incentive spirometry while awake.? influenza/COVID/RSV negative Rocephin and Flagyl CMP/CBC daily gastroenteritis ?patient started have abdomen pain, nausea vomiting diarrhea blood culture and stool culture pending CT ABD Suspecting acute infective gastroenteritis Received Zosyn in the ED ?changes ceftriaxone Flagyl IV Pain control IV fluids GI consulted advance diet as tolerated PPI 08/26 EGD scheduled for today/ cancelled due to low EF Acute kidney injury secondary to dehydration-Improving gentle hydration hold bumetanide hold lisinopril Blood pressure soft, ?possible due to inadequate intake and nausea vomiting ?received normal saline bolus 3 L Elevated troponin Current downtrend peaked at 0.067 Likely ischemic demand EKG with no acute changes Echocardiogram EF <15% Cardiomyopathy ECHO EF <15% Pacemaker/ICD in place secondary to radiation and chemo therapy Diabetes ?Accu-Cheks a.c. HS sliding scale insulin hold oral diabetic medications Hemoglobin A1c goal less than 7 pending Diabetic diet consult to dietitian Optimize Daljit inhibitors and statins.? Watch for hypoglycemia/hypoglycemic protocol ordered Code status:? Full code per patient DVT prophylaxis:? eliquis Stress ulcer prophylaxis:? Protonix 40 BID PT/OT notes:? Ambulatory Disposition:??Patient admitted due to nausea vomiting and diarrhea with elevated troponins and PNA. Ruled out ACS will continue to treat for PNA.? Patient ambulatory at this time discharge back to home when medically stable. Time Spent With Patient Time with patient: 15 - 25 minutes Subjective Date/time seen: 08/27/23 09:47 Interval history: Admission: Medical Record This is a 72-year-old male with past medical history significant for insulin-dependent diabetes mellitus, congestive heart failure,? chronic kidney disease. patient is a poor historian and cannot really give any details about his? medical history presents to the emergency room due to nausea vomiting and diarrhea.? Preliminary workup was significant for chest x-ray with infiltrates.? CT of abdomen and pelvis was low yielding.? Patient has been admitted for further evaluation management and treatment. 08/25: Assumed care Patient continues to have complaints of N/V not tolerating oral intake. Patient initial troponin x 3 were trending up, F/U troponin this am was down trending likely ischemic demand EKG with no acute issues, and echo pending. GI consulted but could secondary to possible PNA vs. Gastroenteritis 08/26: Patient still feels horrible with generalized weakness and nausea. EGD cancelled due to patient low EF <15. Spoke with patient regarding echo results this a chronic and patient does have pacemaker/defib in place it was secondary to emt intermediate radiation and chemo therapy. Will continue to treat patient pneumonia and monitor for improvement. Patient agrees with current plan and forgoing the EGD. Review of Systems Review of Systems: Nausea, vomiting, diarrhea All systems reviewed & are unremarkabl
--- NOTE | 2023-08-27 10:16 | SUR.PREOP ---
Per Dr. Byers, cancel procedure due to EF.
[2023-08-27 11:41] LABS: Glucose Point of Care 210 mg/dl (65-105)
[2023-08-27] MEDS: cefTRIAXone 2 GM/NS 100 ML 2 GM/100 ML BAG IVPB (11:51)
[2023-08-27] MEDS: CHOLECALCIFEROL 1,000 UNITS TABLET 2000 UNITS PO (11:52)
[2023-08-27] MEDS: DIGOXIN TAB 125 MCG TABLET PO (11:52)
[2023-08-27] MEDS: CYANOCOBALAMIN 1,000 MCG TABLET 5000 MCG PO (11:52)
[2023-08-27] MEDS: GABAPENTIN 300 MG CAPSULE PO ×3 (11:52→20:44)
[2023-08-27] MEDS: ASPIRIN 81 MG CHEWABLE TABLET PO (11:52)
[2023-08-27] MEDS: APIXABAN 5 MG TABLET PO ×2 (11:53→20:44)
[2023-08-27] MEDS: OMEGA 3 POLYUNSAT FATTY ACIDS 1 GM CAP PO ×2 (11:53→16:52)
[2023-08-27] MEDS: PANTOPRAZOLE 40 MG TABLET PO (11:53)
--- NOTE | 2023-08-27 14:33 | WPDGIPROGNO ---
Progress Note: A&P Assessment and Plan (1) Nausea & vomiting: Qualifiers: Vomiting type: unspecified Qualified Code(s): R11.2 - Nausea with vomiting, unspecified Code(s): R11.2 - Nausea with vomiting, unspecified Status: Acute Assessment and Plan: given significant low EF we can not perform EGD, he will be at high risk with anesthesia he is feeling better, resume diet and monitor (2) Fatty liver: Code(s): K76.0 - Fatty (change of) liver, not elsewhere classified Status: Acute Assessment and Plan: noted by imaging (3) Diabetes mellitus: Code(s): E11.9 - Type 2 diabetes mellitus without complications Status: Acute (4) Cardiomyopathy: Code(s): I42.9 - Cardiomyopathy, unspecified Status: Acute Assessment and Plan: severely reduced EF by primary team (5) Thrombocytopenia: Code(s): D69.6 - Thrombocytopenia, unspecified Status: Acute Assessment and Plan: stable, he has fatty liver, normal spleen Subjective Date/time seen: 08/27/23 14:33 Interval history: we decided to cancel EGD today after reviewed ECHO that showed LEVF less than 15%- anesthesia did not comfortable to proceed nausea is better today Review of Systems Review of Systems: All systems reviewed & are unremarkable except as noted in HPI and below Exam Const: General: comfortable and no acute distress HENMT: Face/Nose/Sinus: Normal nares present Eyes: General: appearance normal, both eyes and all related structures Neck: Neck: supple Resp: Auscultation: clear to auscultation bilaterally Cardio: Rate: regular rate Rhythm: regular rhythm GI: Inspection: non-distended GI Palp: Yes Soft to palpation and No Tenderness to palpation present (GI) Auscultation: normal bowel sounds Skin: General skin exam: normal color Neuro: Speech: normal speech Extrem: General: normal to inspection Psych: Mental Status: mental status grossly normal Objective Data Vital Signs Vital Signs: Vital Signs - 24 hr 08/26/23 16:00 08/26/23 19:27 08/26/23 16:00 Temperature 97.8 F 97.2 F L Pulse Rate 91 97 82 Respiratory Rate 20 20 Blood Pressure 122/75 130/82 Pulse Oximetry 98 99 Oxygen Delivery 08/26/23 18:00 08/26/23 20:00 08/26/23 20:00 Temperature Pulse Rate 87 91 Respiratory Rate Blood Pressure Pulse Oximetry Oxygen Delivery Room Air 08/26/23 22:00 08/26/23 23:30 08/27/23 00:00 Temperature 97.2 F L Pulse Rate 89 88 86 Respiratory Rate 18 Blood Pressure 112/58 L Pulse Oximetry 99 Oxygen Delivery 08/27/23 00:00 08/27/23 04:00 08/27/23 02:00 Temperature 97.7 F Pulse Rate 96 86 Respiratory Rate 18 Blood Pressure 119/88 Pulse Oximetry 97 Oxygen Delivery Room Air 08/27/23 04:00 08/27/23 04:00 08/27/23 06:00 Temperature Pulse Rate 97 85 Respiratory Rate Blood Pressure Pulse Oximetry Oxygen Delivery Room Air 08/27/23 07:46 08/27/23 09:26 08/27/23 11:31 Temperature 96.7 F L 97.0 F L 96.9 F L Pulse Rate 93 92 92 Respiratory Rate 20 24 H 20 Blood Pressure 128/82 109/96 H 101/55 L Pulse Oximetry 97 100 Oxygen Delivery Room Air 08/27/23 11:52 Temperature Pulse Rate 80 Respiratory Rate Blood Pressure Pulse Oximetry Oxygen Delivery Intake/Output Intake/Output: Intake & Output 08/24/23 08/25/23 08/26/23 08/27/23 23:59 23:59 23:59 23:59 Intake Total 4590 4355 2220 Output Total 1700 1350 1050 Balance 2890 3005 1170 Meds/Results Medications: Active Medications Generic Name Dose Route Start Last Admin Trade Name Freq PRN Reason Stop Dose Admin Acetaminophen 650 mg 08/26/23 10:15 08/27/23 08:46 Acetaminophen 325 Mg Tablet PO 650 mg Q4H PRN Administration Mild Pain (1-3) or Fever Apixaban 5 mg 08/26/23 21:00 08/27/23 11:53 Apixaban 5 Mg Tablet PO 5 mg Q12HR ZULLY Administration Aspirin 81 mg
--- NOTE | 2023-08-27 15:04 | PC.NURSE ---
This patient, López Allan, was received from IMU on 08/27/23 at 1505. Patient/family oriented to unit policies and routines
--- NOTE | 2023-08-27 15:51 | PCPTNOTE ---
Attempted PT evaluation. Pt refused due to not feeling well. RN made aware. Will follow
[2023-08-27 16:42] LABS: Glucose Point of Care 172 mg/dl (65-105)
[2023-08-27 21:07] LABS: Glucose Point of Care 181 mg/dl (65-105)
[2023-08-28] MEDS: ACETAMINOPHEN 500 MG TABLET 1000 MG PO (02:50)
[2023-08-28] MEDS: CYCLOBENZAPRINE HCL 5 MG TABLET PO (02:50)
[2023-08-28] MEDS: SODIUM CHLORIDE 0.9% IV 1,000 ML 150 ML IV CONT (04:27)
[2023-08-28 05:32] VITALS: BP 105/73; PULSE 83; RESP 18; TEMP 36.8; O2SAT 95
[2023-08-28] MEDS: metroNIDAZOLE 500 MG/ISO 100ML 500 MG/100 ML BAG 100 MG IVPB (05:41)
[2023-08-28] MEDS: LEVOTHYROXINE SODIUM 100 MCG TABLET PO (05:41)
[2023-08-28 07:23] LABS: Glucose Point of Care 142 mg/dl (65-105)
[2023-08-28 08:40] VITALS: BP 142/81
[2023-08-28 08:42] VITALS: PULSE 105
[2023-08-28] MEDS: GABAPENTIN 300 MG CAPSULE PO ×2 (08:42→21:06)
[2023-08-28] MEDS: DIGOXIN TAB 125 MCG TABLET PO (08:42)
[2023-08-28] MEDS: CYANOCOBALAMIN 1,000 MCG TABLET 5000 MCG PO (08:42)
[2023-08-28] MEDS: ASPIRIN 81 MG CHEWABLE TABLET PO (08:42)
[2023-08-28] MEDS: APIXABAN 5 MG TABLET PO ×2 (08:42→21:06)
[2023-08-28] MEDS: OMEGA 3 POLYUNSAT FATTY ACIDS 1 GM CAP PO (08:42)
[2023-08-28] MEDS: CHOLECALCIFEROL 1,000 UNITS TABLET 2000 UNITS PO (08:42)
[2023-08-28] MEDS: PANTOPRAZOLE 40 MG TABLET PO (08:42)
[2023-08-28] MEDS: cefTRIAXone 2 GM/NS 100 ML 2 GM/100 ML BAG IVPB (08:43)
--- NOTE | 2023-08-28 09:06 | P.PNIM_ITS ---
Progress Note: A&P Assessment and Plan (1) Nausea & vomiting: Qualifiers: Vomiting type: unspecified Qualified Code(s): R11.2 - Nausea with vomiting, unspecified Code(s): R11.2 - Nausea with vomiting, unspecified Status: Acute (2) Diarrhea: Qualifiers: Diarrhea type: unspecified type Qualified Code(s): R19.7 - Diarrhea, unspecified Code(s): R19.7 - Diarrhea, unspecified Status: Acute (3) KORIN (acute kidney injury): Code(s): N17.9 - Acute kidney failure, unspecified Status: Acute (4) Pneumonia: Qualifiers: Laterality: bilateral Lung location: unspecified part of lung Pneumonia type: aspiration pneumonia Code(s): J18.9 - Pneumonia, unspecified organism Status: Acute Plan Pneumonia * Chest x-ray he with infiltrate * Recent COVID + 3 weeks ago * incentive spirometry while awake.? * influenza/COVID/RSV negative * Rocephin and Flagyl * CMP/CBC daily gastroenteritis * ?patient started have abdomen pain, nausea vomiting diarrhea * blood culture and stool culture pending * CT ABD Suspecting acute infective gastroenteritis * Received Zosyn in the ED * ?changes ceftriaxone Flagyl IV * Pain control * IV fluids * GI consulted * advance diet as tolerated * PPI 08/26 * EGD scheduled for today/ cancelled due to low EF Transaminitis * ALT/AST with significant increase * and * f/u Hepatic panel * hepatitis panel * US pending * changed ABX therapy * GI consulted * Lactic pending Acute kidney injury secondary to dehydration * gentle hydration * hold lisinopril * Blood pressure soft, * ?possible due to inadequate intake and nausea vomiting * ?received normal saline bolus 3 L 08/27 * bumped Cr 1.6 * nitesh colored urine * BP improved resumed Imdur, BB and gave a dose of bumex IV * UA pending Elevated troponin * Current downtrend peaked at 0.067 * Likely ischemic demand * EKG with no acute changes * Echocardiogram EF <15% Cardiomyopathy * ECHO EF <15% * Pacemaker/ICD in place * secondary to radiation and chemo therapy 08/27: * Resumed patient Imdur, Bumex, and BB Diabetes * ?Accu-Cheks a.c. HS * sliding scale insulin * hold oral diabetic medications * Hemoglobin A1c goal less than 7 pending * Diabetic diet * consult to dietitian * Optimize Daljit inhibitors and statins.? * Watch for hypoglycemia/hypoglycemic protocol ordered Code status:? Full code per patient DVT prophylaxis:? eliquis Stress ulcer prophylaxis:? Protonix 40 BID PT/OT notes:? PT/OT pending Disposition:??Patient admitted due to nausea vomiting and diarrhea with elevated troponins and PNA. Ruled out ACS will continue to treat for PNA.? Patient with acute elevated liver enzymes history of fatty liver liver function studies pending. Time Spent With Patient Time with patient: 15 - 25 minutes Subjective Date/time seen: 08/28/23 09:06 Interval history: Admission: Medical Record This is a 72-year-old male with past medical history significant for insulin- dependent diabetes mellitus, congestive heart failure,? chronic kidney disease. patient is a poor historian and cannot really give any details about his? medical history presents to the emergency room due to nausea vomiting and diarrhea.? Preliminary workup was significant for chest x-ray with infiltrates.? CT of abdomen and pelvis was low yielding.? Patient has been admi
--- NOTE | 2023-08-28 09:06 | PM.IMPN ---
Progress Note: A&P Assessment and Plan (1) Nausea & vomiting: Qualifiers: Vomiting type: unspecified Qualified Code(s): R11.2 - Nausea with vomiting, unspecified Code(s): R11.2 - Nausea with vomiting, unspecified Status: Acute (2) Diarrhea: Qualifiers: Diarrhea type: unspecified type Qualified Code(s): R19.7 - Diarrhea, unspecified Code(s): R19.7 - Diarrhea, unspecified Status: Acute (3) KORIN (acute kidney injury): Code(s): N17.9 - Acute kidney failure, unspecified Status: Acute (4) Pneumonia: Qualifiers: Laterality: bilateral Lung location: unspecified part of lung Pneumonia type: aspiration pneumonia Code(s): J18.9 - Pneumonia, unspecified organism Status: Acute Plan Pneumonia Chest x-ray he with infiltrate Recent COVID + 3 weeks ago incentive spirometry while awake.? influenza/COVID/RSV negative Rocephin and Flagyl CMP/CBC daily gastroenteritis ?patient started have abdomen pain, nausea vomiting diarrhea blood culture and stool culture pending CT ABD Suspecting acute infective gastroenteritis Received Zosyn in the ED ?changes ceftriaxone Flagyl IV Pain control IV fluids GI consulted advance diet as tolerated PPI 08/26 EGD scheduled for today/ cancelled due to low EF Transaminitis ALT/AST with significant increase and f/u Hepatic panel hepatitis panel US pending changed ABX therapy GI consulted Lactic pending Acute kidney injury secondary to dehydration gentle hydration hold lisinopril Blood pressure soft, ?possible due to inadequate intake and nausea vomiting ?received normal saline bolus 3 L 08/27 bumped Cr 1.6 nitesh colored urine BP improved resumed Imdur, BB and gave a dose of bumex IV UA pending Elevated troponin Current downtrend peaked at 0.067 Likely ischemic demand EKG with no acute changes Echocardiogram EF <15% Cardiomyopathy ECHO EF <15% Pacemaker/ICD in place secondary to radiation and chemo therapy 08/27: Resumed patient Imdur, Bumex, and BB Diabetes ?Accu-Cheks a.c. HS sliding scale insulin hold oral diabetic medications Hemoglobin A1c goal less than 7 pending Diabetic diet consult to dietitian Optimize Daljit inhibitors and statins.? Watch for hypoglycemia/hypoglycemic protocol ordered Code status:? Full code per patient DVT prophylaxis:? eliquis Stress ulcer prophylaxis:? Protonix 40 BID PT/OT notes:? PT/OT pending Disposition:??Patient admitted due to nausea vomiting and diarrhea with elevated troponins and PNA. Ruled out ACS will continue to treat for PNA.? Patient with acute elevated liver enzymes history of fatty liver liver function studies pending. Time Spent With Patient Time with patient: 15 - 25 minutes Subjective Date/time seen: 08/28/23 09:06 Interval history: Admission: Medical Record This is a 72-year-old male with past medical history significant for insulin-dependent diabetes mellitus, congestive heart failure,? chronic kidney disease. patient is a poor historian and cannot really give any details about his? medical history presents to the emergency room due to nausea vomiting and diarrhea.? Preliminary workup was significant for chest x-ray with infiltrates.? CT of abdomen and pelvis was low yielding.? Patient has been admitted for further evaluation management and treatment. 08/25: Assumed care Patient continues to have complaints of N/V not tolerating oral intake. Patient initial troponin x 3 were trending up, F/U troponin this am was down trending likely ischemic demand EKG with no acute issues, and echo pending. GI consulted but could secondary to possible PNA vs. Gastroenteritis 08/26: Patient still feels horrible with generalized weakness and nausea. EGD cancelled due to patient low EF <15. Spoke with patient regarding echo results this a chronic and patient do
[2023-08-28 09:51] LABS: Hematocrit 39.2 % (42.0-52.0); Hemoglobin 12.2 g/dL (14.0-18.0); Mean Corpuscular HGB Conc 31.1 g/dl (32-36); Mean Corpuscular Hemoglobin 29.8 pg (26-34); Mean Corpuscular Volume 95.6 fl (80-100); Mean Platelet Volume 11.1 fl (7.4-10.4); Platelet Count Result 157 k/mm3 (150-375); Red Cell Distribution Width 16.4 % (11.5-14.5); White Blood Count 6.8 K/mm3 (4.5-10.0)
[2023-08-28 10:04] LABS: Albumin Level 3.3 g/dL (3.5-5.1); Alkaline Phosphatase 83 U/L (38-126); Anion Gap 12 mmol/L (4-12); Bilirubin,Total 0.7 mg/dL (0.2-1.3); Blood Urea Nitrogen 20 mg/dL (9-20); Carbon Dioxide 13 mmol/L (22-30); Chloride 114 mmol/L (98-107); Estimated CRCL calculation 44 ml/min; Estimated Glomerular Filt Rate 42; Glucose 177 mg/dL (65-110); Potassium 4.1 mmol/L (3.4-5.0); Sodium 139 mmol/L (137-145)
[2023-08-28 10:29] LABS: Alanine Aminotransferase 1234 U/L (6-50)
[2023-08-28 10:38] LABS: Aspartate Amino Transferase 1800 U/L (17-59)
[2023-08-28 11:38] LABS: Glucose Point of Care 200 mg/dl (65-105)
[2023-08-28 13:46] LABS: Lactic Acid Reflex 2.1 mmol/L (0.7-2.0)
--- NOTE | 2023-08-28 13:55 | PC.NURSE ---
Patient off of unit to US
[2023-08-28 14:01] LABS: Albumin Level 3.1 g/dL (3.5-5.1); Alkaline Phosphatase 84 U/L (38-126); Anion Gap 8 mmol/L (4-12); Bilirubin,Total 0.6 mg/dL (0.2-1.3); Blood Urea Nitrogen 23 mg/dL (9-20); Calcium 7.8 mg/dL (8.4-10.2); Carbon Dioxide 14 mmol/L (22-30); Chloride 114 mmol/L (98-107); Estimated CRCL calculation 50 ml/min; Estimated Glomerular Filt Rate 50; Glucose 212 mg/dL (65-110); Lipase 131 U/L (23-300); Potassium 4.2 mmol/L (3.4-5.0); Sodium 136 mmol/L (137-145)
[2023-08-28 14:05] LABS: Appearance Urine Cloudy (Clear); Bacteria Urine None Seen /hpf; Bilirubin Urine 1+ (Negative); Blood Urine 3+ (Negative); Color Urine Dark Yellow (Yellow); Glucose Urine UA 2+ mg/dL (Negative); Hyaline Casts Urine Present /lpf; Ketones Urine Negative (Negative); Leukocyte Esterase Ur 1+ LEU/UL (Negative); Need Manual Microscopic Reviewed; Nitrate Urine Negative (Negative); Protein Urine 2+ mg/dL (Negative); RBC Urine >100 /hpf (0-2); Specific Grav Ur 1.021 (1.001-1.035); Squamous Epithelial Cell Urine None Seen /hpf (Few); Urobilinogen Urine 0.2 mg/dL (<2.0); WBC Urine 0-5 /hpf (0-3)
[2023-08-28 14:09] LABS: Add Urine Microscopic? YES
[2023-08-28 14:12] LABS: Alanine Aminotransferase 1295 U/L (6-50); Aspartate Amino Transferase 1627 U/L (17-59)
[2023-08-28 15:23] VITALS: BP 134/73; PULSE 85; O2SAT 95
[2023-08-28] MEDS: BUMETANIDE INJ 1 MG/4 ML VIAL IV PUSH (15:23)
[2023-08-28] MEDS: ISOSORBIDE MONONITRATE 30 MG TAB.ER.24H PO (15:23)
[2023-08-28 16:03] VITALS: BP 110/62; PULSE 79; RESP 12; TEMP 36.3; O2SAT 96
--- NOTE | 2023-08-28 16:11 | WPDGIPROGNO ---
Progress Note: A&P Assessment and Plan (1) Nausea & vomiting: Qualifiers: Vomiting type: unspecified Qualified Code(s): R11.2 - Nausea with vomiting, unspecified Code(s): R11.2 - Nausea with vomiting, unspecified Status: Acute Assessment and Plan: no more report of n/v cancelled egd given abnormal 2d-echo with significant systolic dysfunction supportive care (2) Cardiomyopathy: Code(s): I42.9 - Cardiomyopathy, unspecified Status: Acute Assessment and Plan: EF very low by primary (3) Elevated liver transaminase level: Code(s): R74.01 - Elevation of levels of liver transaminase levels Status: Acute Assessment and Plan: acutely elevated (just few days ago transaminases normal)- I think this is from significant systolic dysfunction/congestive hepatopathy imaging showed fatty liver, wonder if could have underlying liver disease for which will complete work up probably will need cardiology evaluation (4) Fatty liver: Code(s): K76.0 - Fatty (change of) liver, not elsewhere classified Status: Acute Assessment and Plan: noted by ct scan (5) Diabetes mellitus: Code(s): E11.9 - Type 2 diabetes mellitus without complications Status: Acute Subjective Date/time seen: 08/28/23 16:11 Interval history: patient denies any more nausea or discomfort, nurse reports that earlier he was more lethargic Review of Systems Review of Systems: All systems reviewed & are unremarkable except as noted in HPI and below Exam Const: General: comfortable and no acute distress Other: chronically ill appearing HENMT: Face/Nose/Sinus: Normal nares present Eyes: General: appearance normal, both eyes and all related structures Neck: Neck: supple Resp: Auscultation: diminished lung sounds Cardio: Rate: regular rate Rhythm: regular rhythm GI: Inspection: non-distended GI Palp: Yes Soft to palpation and No Tenderness to palpation present (GI) Auscultation: normal bowel sounds Skin: General skin exam: normal color Neuro: Speech: normal speech Other: he is awake and alert but more slowly to respond Extrem: General: normal to inspection Psych: Mental Status: mental status grossly normal Objective Data Vital Signs Vital Signs: Vital Signs - 24 hr 08/27/23 21:35 08/27/23 20:00 08/28/23 05:32 Temperature 97.0 F L 98.3 F Pulse Rate 85 83 Respiratory Rate 20 18 Blood Pressure 108/76 105/73 Pulse Oximetry 98 95 Oxygen Delivery Room Air 08/28/23 08:42 08/28/23 09:09 08/28/23 08:42 Temperature Pulse Rate 105 H Respiratory Rate Blood Pressure Pulse Oximetry Oxygen Delivery Room Air Room Air 08/28/23 08:40 08/28/23 15:23 Temperature Pulse Rate 85 Respiratory Rate Blood Pressure 142/81 H 134/73 Pulse Oximetry 95 Oxygen Delivery Intake/Output Intake/Output: Intake & Output 08/25/23 08/26/23 08/27/23 08/28/23 23:59 23:59 23:59 23:59 Intake Total 4590 4355 4260 2598 Output Total 1700 1350 1050 500 Balance 2890 3005 3210 2098 Meds/Results Medications: Active Medications Generic Name Dose Route Start Last Admin Trade Name Freq PRN Reason Stop Dose Admin Acetaminophen 650 mg 08/26/23 10:15 08/27/23 22:31 Acetaminophen 325 Mg Tablet PO 650 mg Q4H PRN Administration Mild Pain (1-3) or Fever Apixaban 5 mg 08/26/23 21:00 08/28/23 08:42 Apixaban 5 Mg Tablet PO 5 mg Q12HR ZULLY Administration Aspirin 81 mg 08/27/23 08:00 08/28/23 08:42 Aspirin 81 Mg Chewable Tablet PO 81 mg DAILY@0800 ZULLY Administration Bumetanide 1 mg 08/28/23 19:00 Bumetanide 1 Mg Tablet PO BID ZULLY Cyanocobalamin 5,000 mcg 08/27/23 09:00 08/28/23 08:42 Cyanocobalamin 1,000 Mcg Tablet PO 5,000 mcg DAILY ZULLY Administration Dextrose 12.5 gm 08/25/23 07:53 Dextrose 50% 25 Gm/50 Ml Syringe IV PUSH PRN PRN Hypoglycemia
[2023-08-28 16:29] LABS: Reflex Lactic Acid Yes or No Add Lactic
[2023-08-28 16:30] LABS: Hepatitis B Surface Antigen Negative (Negative)
[2023-08-28 16:36] LABS: HAV RESULT Negative (Negative); Hepatitis B Core IgM Result Negative (Negative)
[2023-08-28 16:41] LABS: Glucose Point of Care 174 mg/dl (65-105)
[2023-08-28 16:47] LABS: Hepatitis C Virus Antibody Negative (Negative)
[2023-08-28] MEDS: AMPICILLIN SULB 1.5 GM/NS 50ML 1.5 GM/50 ML VIAL IVPB (17:50)
[2023-08-28 19:10] LABS: Lactic Acid Reflex 2.2 mmol/L (0.7-2.0)
[2023-08-28 19:12] LABS: Ammonia < 9 umol/L (9-30)
[2023-08-28 20:48] LABS: Glucose Point of Care 148 mg/dl (65-105)
[2023-08-28] MEDS: BUMETANIDE 1 MG TABLET PO (21:06)
[2023-08-28 21:18] VITALS: BP 109/83; PULSE 84; RESP 18; TEMP 36.4; O2SAT 97
[2023-08-29] VITALS (9 sets, daily range): BP systolic 94–110; BP diastolic 47–73; PULSE 59–77; RESP 18–24; TEMP 36.1–36.8; O2SAT 90–97
[2023-08-29] MEDS: AMPICILLIN SULB 1.5 GM/NS 50ML 1.5 GM/50 ML VIAL IVPB ×4 (00:29→17:00)
[2023-08-29] MEDS: LEVOTHYROXINE SODIUM 100 MCG TABLET PO (06:01)
[2023-08-29] MEDS: ACETAMINOPHEN 325 MG TABLET 650 MG PO ×2 (06:01→21:18)
[2023-08-29 07:23] LABS: Glucose Point of Care 160 mg/dl (65-105)
[2023-08-29 07:36] LABS: Hematocrit 37.5 % (42.0-52.0); Hemoglobin 11.9 g/dL (14.0-18.0); Immature Platelet Fraction Pct 6.8 % (0.9-11.2); Mean Corpuscular HGB Conc 31.7 g/dl (32-36); Mean Corpuscular Hemoglobin 30.1 pg (26-34); Mean Corpuscular Volume 94.9 fl (80-100); Mean Platelet Volume 11.3 fl (7.4-10.4); Platelet Count Result 133 k/mm3 (150-375); Red Blood Count 3.95 M/mm3 (4.6-6.20); White Blood Count 5.5 K/mm3 (4.5-10.0)
[2023-08-29 07:54] LABS: Alkaline Phosphatase 87 U/L (38-126); Anion Gap 7 mmol/L (4-12); Bilirubin,Total 0.6 mg/dL (0.2-1.3); Blood Urea Nitrogen 24 mg/dL (9-20); Calcium 8.1 mg/dL (8.4-10.2); Carbon Dioxide 19 mmol/L (22-30); Chloride 111 mmol/L (98-107); Estimated CRCL calculation 44 ml/min; Estimated Glomerular Filt Rate 42; Glucose 161 mg/dL (65-110); Potassium 3.9 mmol/L (3.4-5.0); Sodium 137 mmol/L (137-145)
[2023-08-29 08:03] LABS: Alanine Aminotransferase 1157 U/L (6-50); Aspartate Amino Transferase 1017 U/L (17-59)
[2023-08-29] MEDS: OMEGA 3 POLYUNSAT FATTY ACIDS 1 GM CAP PO ×2 (08:16→16:19)
[2023-08-29] MEDS: DIGOXIN TAB 125 MCG TABLET PO (08:16)
[2023-08-29] MEDS: METOPROLOL SUCCINATE EXT REL 100 MG TABCR PO (08:16)
[2023-08-29] MEDS: BUMETANIDE 1 MG TABLET PO (08:16)
[2023-08-29] MEDS: CYANOCOBALAMIN 1,000 MCG TABLET 5000 MCG PO (08:17)
[2023-08-29] MEDS: ASPIRIN 81 MG CHEWABLE TABLET PO (08:17)
[2023-08-29] MEDS: GABAPENTIN 300 MG CAPSULE PO ×3 (08:17→21:19)
[2023-08-29] MEDS: CHOLECALCIFEROL 1,000 UNITS TABLET 2000 UNITS PO (08:17)
[2023-08-29] MEDS: PANTOPRAZOLE 40 MG TABLET PO (08:17)
[2023-08-29] MEDS: APIXABAN 5 MG TABLET PO ×2 (08:17→21:19)
[2023-08-29] MEDS: ISOSORBIDE MONONITRATE 30 MG TAB.ER.24H PO (08:24)
--- NOTE | 2023-08-29 08:35 | P.PNIM_ITS ---
Progress Note: A&P Assessment and Plan (1) Nausea & vomiting: Qualifiers: Vomiting type: unspecified Qualified Code(s): R11.2 - Nausea with vomiting, unspecified Code(s): R11.2 - Nausea with vomiting, unspecified Status: Acute (2) Diarrhea: Qualifiers: Diarrhea type: unspecified type Qualified Code(s): R19.7 - Diarrhea, unspecified Code(s): R19.7 - Diarrhea, unspecified Status: Acute (3) KORIN (acute kidney injury): Code(s): N17.9 - Acute kidney failure, unspecified Status: Acute (4) Pneumonia: Qualifiers: Laterality: bilateral Lung location: unspecified part of lung Pneumonia type: aspiration pneumonia Code(s): J18.9 - Pneumonia, unspecified organism Status: Acute Plan Pneumonia * Chest x-ray he with infiltrate * Recent COVID + 3 weeks ago * incentive spirometry while awake.? * influenza/COVID/RSV negative * Rocephin and Flagyl * CMP/CBC daily gastroenteritis * ?patient started have abdomen pain, nausea vomiting diarrhea * blood culture and stool culture pending * CT ABD Suspecting acute infective gastroenteritis * Received Zosyn in the ED * ?changes ceftriaxone Flagyl IV * Pain control * IV fluids * GI consulted * advance diet as tolerated * PPI 08/26 * EGD scheduled for today/ cancelled due to low EF Transaminitis * ALT/AST with significant increase * and * f/u Hepatic panel * hepatitis panel * US pending * changed ABX therapy * GI consulted * Lactic 2.1/2.2 * Likely secondary to ischemia/cardiomyopathy 08/28: * US fatty liver, scant ascites, no obstruction * Enzymes trending down * Hepatitis panel negative Acute kidney injury secondary to dehydration * gentle hydration * hold lisinopril * Blood pressure soft, * ?possible due to inadequate intake and nausea vomiting * ?received normal saline bolus 3 L 08/27 * bumped Cr 1.6 * nitesh colored urine * BP improved resumed Imdur, BB and gave a dose of bumex IV * UA pending Elevated troponin * Current downtrend peaked at 0.067 * Likely ischemic demand * EKG with no acute changes * Echocardiogram EF <15% Cardiomyopathy * ECHO EF <15% * Pacemaker/ICD in place * secondary to radiation and chemo therapy 08/27: * Resumed patient Imdur, Bumex, and BB 08/28: * Cardiology consulted recommendations appreciated * soft BP * CXR f/U to determine fluid status * Diuretic vs Fluids Diabetes * ?Accu-Cheks a.c. HS * sliding scale insulin * hold oral diabetic medications * Hemoglobin A1c goal less than 7 pending * Diabetic diet * consult to dietitian * Optimize Daljit inhibitors and statins.? * Watch for hypoglycemia/hypoglycemic protocol ordered Code status:? Full code per patient DVT prophylaxis:? eliquis Stress ulcer prophylaxis:? Protonix 40 BID PT/OT notes:? PT/OT pending Disposition:??Patient admitted due to nausea vomiting and diarrhea with elevated troponins and PNA. Ruled out ACS will continue to treat for PNA.? Patient with acute elevated liver enzymes history of fatty liver/cardiomyopathy GI and cardiology consulted. Time Spent With Patient Time with patient: 15 - 25 minutes Subjective Date/time seen: 08/29/23 08:35 Interval history: Admission: Medical Record This is a 72-year-old male with past medical history significant for insulin- dependent diabetes mellitus, con
--- NOTE | 2023-08-29 08:35 | PM.IMPN ---
Progress Note: A&P Assessment and Plan (1) Nausea & vomiting: Qualifiers: Vomiting type: unspecified Qualified Code(s): R11.2 - Nausea with vomiting, unspecified Code(s): R11.2 - Nausea with vomiting, unspecified Status: Acute (2) Diarrhea: Qualifiers: Diarrhea type: unspecified type Qualified Code(s): R19.7 - Diarrhea, unspecified Code(s): R19.7 - Diarrhea, unspecified Status: Acute (3) KORIN (acute kidney injury): Code(s): N17.9 - Acute kidney failure, unspecified Status: Acute (4) Pneumonia: Qualifiers: Laterality: bilateral Lung location: unspecified part of lung Pneumonia type: aspiration pneumonia Code(s): J18.9 - Pneumonia, unspecified organism Status: Acute Plan Pneumonia Chest x-ray he with infiltrate Recent COVID + 3 weeks ago incentive spirometry while awake.? influenza/COVID/RSV negative Rocephin and Flagyl CMP/CBC daily gastroenteritis ?patient started have abdomen pain, nausea vomiting diarrhea blood culture and stool culture pending CT ABD Suspecting acute infective gastroenteritis Received Zosyn in the ED ?changes ceftriaxone Flagyl IV Pain control IV fluids GI consulted advance diet as tolerated PPI 08/26 EGD scheduled for today/ cancelled due to low EF Transaminitis ALT/AST with significant increase and f/u Hepatic panel hepatitis panel US pending changed ABX therapy GI consulted Lactic 2.1/2.2 Likely secondary to ischemia/cardiomyopathy 08/28: US fatty liver, scant ascites, no obstruction Enzymes trending down Hepatitis panel negative Acute kidney injury secondary to dehydration gentle hydration hold lisinopril Blood pressure soft, ?possible due to inadequate intake and nausea vomiting ?received normal saline bolus 3 L 08/27 bumped Cr 1.6 nitesh colored urine BP improved resumed Imdur, BB and gave a dose of bumex IV UA pending Elevated troponin Current downtrend peaked at 0.067 Likely ischemic demand EKG with no acute changes Echocardiogram EF <15% Cardiomyopathy ECHO EF <15% Pacemaker/ICD in place secondary to radiation and chemo therapy 08/27: Resumed patient Imdur, Bumex, and BB 08/28: Cardiology consulted recommendations appreciated soft BP CXR f/U to determine fluid status Diuretic vs Fluids Diabetes ?Accu-Cheks a.c. HS sliding scale insulin hold oral diabetic medications Hemoglobin A1c goal less than 7 pending Diabetic diet consult to dietitian Optimize Daljit inhibitors and statins.? Watch for hypoglycemia/hypoglycemic protocol ordered Code status:? Full code per patient DVT prophylaxis:? eliquis Stress ulcer prophylaxis:? Protonix 40 BID PT/OT notes:? PT/OT pending Disposition:??Patient admitted due to nausea vomiting and diarrhea with elevated troponins and PNA. Ruled out ACS will continue to treat for PNA.? Patient with acute elevated liver enzymes history of fatty liver/cardiomyopathy GI and cardiology consulted. Time Spent With Patient Time with patient: 15 - 25 minutes Subjective Date/time seen: 08/29/23 08:35 Interval history: Admission: Medical Record This is a 72-year-old male with past medical history significant for insulin-dependent diabetes mellitus, congestive heart failure,? chronic kidney disease. patient is a poor historian and cannot really give any details about his? medical history presents to the emergency room due to nausea vomiting and diarrhea.? Preliminary workup was significant for chest x-ray with infiltrates.? CT of abdomen and pelvis was low yielding.? Patient has been admitted for further evaluation management and treatment. 08/25: Assumed care Patient continues to have complaints of N/V not tolerating oral intake. Patient initial troponin x 3 were trending up, F/U troponin this am was down trending likely ischemic demand EKG with no ac
[2023-08-29 11:44] LABS: Glucose Point of Care 195 mg/dl (65-105)
--- NOTE | 2023-08-29 13:30 | PM.CNCAR ---
Assessment and Plan Assessment and plan (1) Cardiomyopathy: Code(s): I42.9 - Cardiomyopathy, unspecified Status: Acute Plan Acute on chronic systolic heart failure likely precipitated by IV fluids and fvolume overload on presentation Advanced cardiomyopathy Status post ICD KORIN Elevated liver enzymes likely related to cardiomyopathy History of atrial fibrillation Diarrhea nausea vomiting on presentation Plan Continue apixaban 5 mg b.i.d. Continues digoxin 125 mcg per day Change bumetanide to 2 Lasix 40 mg IV b.i.d. Continue eplerenone 25 mg daily Decrease metoprolol XL to 50 mg daily Continue Imdur Follow-up kidney function and electrolytes History of Present Illness History of Present Illness Consult date/time: 08/29/23 13:30 Reason For Visit: KORIN Narrative: Presented to the hospital was progressive shortness of breath associated with easy fatigue. It was also having burning sensation was micturition. Shortness of breath was severe present at rest on mild activity. Associated with orthopnea. Has been compliant with the medications. He has known history of cardiomyopathy with history of defibrillator. Review of Systems Review of Systems: All systems reviewed & are unremarkable except as noted in HPI and below PMFSH Past Medical History Medical History (Updated 08/28/23 @ 16:13 by Kings Case MD) Abnormal CT scan, esophagus Cardiomyopathy Diabetes mellitus Elevated liver transaminase level Fatty liver Thrombocytopenia Family History Family History (Updated 08/25/23 @ 13:05 by Stevie Russo RN) Father Lung cancer Mother Blood loss Social History Social History Smoking status: Former smoker Tobacco type: cigarettes Smoking end date: 04/13/95 Alcohol intake: former Substance use type: does not use Do You Feel Safe in your Home?: Yes Lack of Transportation: No Lack of Food: Never True Current Housing: I Have Housing Concerned About Future Housing: No Difficulty Paying Gas/Electric Bills: No Difficulty Paying for Meds: No Currently Unemployed: No Education: High School Diploma/GED Difficulty w/ Childcare or Family Care: No Spiritual care concerns: No Meds Home Medications and Allergies Home Medications Medication Instructions Recorded Confirmed Type apixaban 5 mg tablet 5 mg PO BID 08/24/23 08/25/23 History aspirin 81 mg tablet 81 mg PO DAILY 08/24/23 08/25/23 History bumetanide 1 mg tablet 1 mg PO BID 08/24/23 08/25/23 History digoxin 125 mcg (0.125 mg) tablet 125 mcg PO DAILY 08/24/23 08/25/23 History empagliflozin 25 mg tablet 25 mg PO DAILY 08/24/23 08/25/23 History eplerenone 25 mg tablet 25 mg PO DAILY 08/24/23 08/25/23 History gabapentin 300 mg tablet 300 mg PO BID 08/24/23 08/25/23 History imiquimod 5 % topical cream packet 1 applic topical 2XW PRN Dry skin 08/24/23 08/25/23 History from cancer treatment insulin aspart U-100 100 unit/mL 15 unit subcut Q12H 08/24/23 08/25/23 History subcutaneous solution isosorbide mononitrate 30 mg 30 mg PO DAILY 08/24/23 08/25/23 History tablet,extended release 24 hr levothyroxine 100 mcg tablet 100 mcg PO DAILY 08/24/23 08/25/23 History lisinopril 10 mg tablet 5 mg PO DAILY 08/24/23 08/25/23 History metoprolol succinate 100 mg 100 mg PO DAILY 08/24/23 08/25/23 History tablet,extended release 24 hr niacin 500 mg tablet (Niacor) 500 mg PO DAILY 08/24/23 08/25/23 History nitroglycerin 0.4 mg sublingual 0.4 mg sublingual Q5M PRN Chest 08/24/23 08/25/23 History tablet Pain omega-3 fatty acids 1,000 mg PO BID 08/24/23 08/25/23 History omeprazole 20 mg capsule,delayed 20 mg PO Q12H 08/24/23 08/25/23 History release polyethylene glycol 3350 17 17 g PO DAILY 08/24/23 08/25/23 History gram/dose oral powder rosuvastatin 40 mg tablet 40 mg PO HS 08/24/23 08/25/23 History cholecalciferol (vitamin D3) 50 50 m
--- NOTE | 2023-08-29 13:43 | WPDGIPROGNO ---
Progress Note: A&P Assessment and Plan (1) Cardiomyopathy: Code(s): I42.9 - Cardiomyopathy, unspecified Status: Acute Assessment and Plan: probably explain most of his issues cardiology on board he already has aicd management per cadiology (2) Elevated liver transaminase level: Code(s): R74.01 - Elevation of levels of liver transaminase levels Status: Acute Assessment and Plan: slowly trending down probably from severe systolic dysfunction imaging showed fatty liver, work up for other liver conditions pending (3) Fatty liver: Code(s): K76.0 - Fatty (change of) liver, not elsewhere classified Status: Acute (4) Diabetes mellitus: Code(s): E11.9 - Type 2 diabetes mellitus without complications Status: Acute (5) Nausea & vomiting: Qualifiers: Vomiting type: unspecified Qualified Code(s): R11.2 - Nausea with vomiting, unspecified Code(s): R11.2 - Nausea with vomiting, unspecified Status: Acute Assessment and Plan: resolved, no more nausea he is eating but poor appetite Subjective Date/time seen: 08/29/23 13:43 Interval history: generalized weakness, no more nausea but poor appetite Review of Systems Review of Systems: All systems reviewed & are unremarkable except as noted in HPI and below Exam Const: General: comfortable and no acute distress Other: Able to lie flat HENMT: Face/Nose/Sinus: Normal nares present and no epistaxis Mouth: Yes moist mucous membranes Eyes: Sclera: sclerae normal Pupils: Equal, round and reactive pupils present Neck: Neck: supple Resp: Auscultation: rales bilateral at the base Cardio: Rate: regular rate Rhythm: regular rhythm Heart sounds: no gallops GI: GI Palp: Yes Soft to palpation and No Tenderness to palpation present (GI) Auscultation: normal bowel sounds Skin: General skin exam: normal color and rashes and/or lesions noted Neuro: Cranial nerves: Yes Equal, round and reactive pupils present Speech: normal speech Other: No obvious focal deficit or facial asymmetry Extrem: General: no edema Objective Data Vital Signs Vital Signs: Vital Signs - 24 hr 08/28/23 15:23 08/28/23 16:03 08/28/23 21:18 Temperature 97.3 F L 97.6 F Pulse Rate 85 79 84 Respiratory Rate 12 18 Blood Pressure 134/73 110/62 109/83 Pulse Oximetry 95 96 97 Oxygen Delivery 08/28/23 20:00 08/29/23 05:02 08/29/23 08:16 Temperature 97.6 F Pulse Rate 72 72 Respiratory Rate 18 Blood Pressure 94/53 L Pulse Oximetry 90 Oxygen Delivery Room Air 08/29/23 08:16 08/29/23 09:07 08/29/23 08:00 Temperature Pulse Rate 72 Respiratory Rate Blood Pressure Pulse Oximetry 93 Oxygen Delivery Room Air Room Air 08/29/23 12:54 Temperature Pulse Rate 70 Respiratory Rate Blood Pressure Pulse Oximetry Oxygen Delivery Intake/Output Intake/Output: Intake & Output 08/26/23 08/27/23 08/28/23 08/29/23 23:59 23:59 23:59 23:59 Intake Total 4355 4260 3188 340 Output Total 1350 1050 2150 1800 Balance 3005 3210 4264 -1050 Meds/Results Medications: Active Medications Generic Name Dose Route Start Last Admin Trade Name Freq PRN Reason Stop Dose Admin Acetaminophen 650 mg 08/26/23 10:15 08/29/23 06:01 Acetaminophen 325 Mg Tablet PO 650 mg Q4H PRN Administration Mild Pain (1-3) or Fever Apixaban 5 mg 08/26/23 21:00 08/29/23 08:17 Apixaban 5 Mg Tablet PO 5 mg Q12HR ZULLY Administration Aspirin 81 mg 08/27/23 08:00 08/29/23 08:17 Aspirin 81 Mg Chewable Tablet PO 81 mg DAILY@0800 ZULLY Administration Bumetanide 1 mg 08/28/23 19:00 08/29/23 08:16 Bumetanide 1 Mg Tablet PO 1 mg BID ZULLY Administration Cyanocobalamin 5,000 mcg 08/27/23 09:00 08/29/23 08:17 Cyanocobalamin 1,000 Mcg Tablet PO 5,000 mcg DAILY ZULYL Administration Dextrose 12.5 gm 08/25/23 07:53 Dextrose 50% 25
[2023-08-29] MEDS: FUROSEMIDE INJ 40 MG/4 ML VIAL IV PUSH (16:20)
[2023-08-29 16:39] LABS: Glucose Point of Care 168 mg/dl (65-105)
[2023-08-29 21:10] LABS: Glucose Point of Care 208 mg/dl (65-105)
[2023-08-30] VITALS (12 sets, daily range): BP systolic 84–104; BP diastolic 42–70; PULSE 63–88; RESP 20; TEMP 36.5–36.6; O2SAT 95–97
[2023-08-30] MEDS: AMPICILLIN SULB 1.5 GM/NS 50ML 1.5 GM/50 ML VIAL IVPB ×5 (00:55→23:42)
[2023-08-30 06:30] LABS: Hematocrit 40.6 % (42.0-52.0); Hemoglobin 12.6 g/dL (14.0-18.0); Mean Corpuscular Hemoglobin 29.7 pg (26-34); Mean Corpuscular Volume 95.8 fl (80-100); Mean Platelet Volume 11.7 fl (7.4-10.4); Platelet Count Result 160 k/mm3 (150-375); Red Blood Count 4.24 M/mm3 (4.6-6.20); Red Cell Distribution Width 16.4 % (11.5-14.5); White Blood Count 8.1 K/mm3 (4.5-10.0)
[2023-08-30] MEDS: LEVOTHYROXINE SODIUM 100 MCG TABLET PO (06:34)
[2023-08-30 06:51] LABS: Albumin Level 3.4 g/dL (3.5-5.1); Alkaline Phosphatase 104 U/L (38-126); Anion Gap 12 mmol/L (4-12); Bilirubin,Total 0.7 mg/dL (0.2-1.3); Blood Urea Nitrogen 29 mg/dL (9-20); Calcium 8.3 mg/dL (8.4-10.2); Carbon Dioxide 16 mmol/L (22-30); Chloride 109 mmol/L (98-107); Estimated CRCL calculation 39 ml/min; Estimated Glomerular Filt Rate 37; Glucose 173 mg/dL (65-110); Potassium 4.3 mmol/L (3.4-5.0); Sodium 137 mmol/L (137-145)
[2023-08-30 06:53] LABS: Alanine Aminotransferase 1291 U/L (6-50); Aspartate Amino Transferase 958 U/L (17-59)
[2023-08-30 07:33] LABS: Glucose Point of Care 188 mg/dl (65-105)
[2023-08-30] MEDS: APIXABAN 5 MG TABLET PO ×2 (08:28→20:07)
[2023-08-30] MEDS: CYANOCOBALAMIN 1,000 MCG TABLET 5000 MCG PO (08:28)
[2023-08-30] MEDS: PANTOPRAZOLE 40 MG TABLET PO (08:28)
[2023-08-30] MEDS: OMEGA 3 POLYUNSAT FATTY ACIDS 1 GM CAP PO ×2 (08:28→16:41)
[2023-08-30] MEDS: METOPROLOL SUCCINATE EXT REL 50 MG TABCR PO (08:28)
[2023-08-30] MEDS: GABAPENTIN 300 MG CAPSULE PO ×3 (08:28→20:07)
[2023-08-30] MEDS: CHOLECALCIFEROL 1,000 UNITS TABLET 2000 UNITS PO (08:28)
[2023-08-30] MEDS: ISOSORBIDE MONONITRATE 30 MG TAB.ER.24H PO (08:28)
[2023-08-30] MEDS: DIGOXIN TAB 125 MCG TABLET PO (08:28)
[2023-08-30] MEDS: ASPIRIN 81 MG CHEWABLE TABLET PO (08:28)
[2023-08-30] MEDS: BUMETANIDE INJ 1 MG/4 ML VIAL IV PUSH ×2 (08:29→16:42)
--- NOTE | 2023-08-30 09:18 | P.PNIM_ITS ---
Progress Note: A&P Assessment and Plan (1) Nausea & vomiting: Qualifiers: Vomiting type: unspecified Qualified Code(s): R11.2 - Nausea with vomiting, unspecified Code(s): R11.2 - Nausea with vomiting, unspecified Status: Acute (2) Diarrhea: Qualifiers: Diarrhea type: unspecified type Qualified Code(s): R19.7 - Diarrhea, unspecified Code(s): R19.7 - Diarrhea, unspecified Status: Acute (3) KORIN (acute kidney injury): Code(s): N17.9 - Acute kidney failure, unspecified Status: Acute (4) Pneumonia: Qualifiers: Laterality: bilateral Lung location: unspecified part of lung Pneumonia type: aspiration pneumonia Code(s): J18.9 - Pneumonia, unspecified organism Status: Acute (5) Elevated liver transaminase level: Code(s): R74.01 - Elevation of levels of liver transaminase levels Status: Acute (6) Cardiomyopathy: Code(s): I42.9 - Cardiomyopathy, unspecified Status: Acute (7) Thrombocytopenia: Code(s): D69.6 - Thrombocytopenia, unspecified Status: Acute (8) Fatty liver: Code(s): K76.0 - Fatty (change of) liver, not elsewhere classified Status: Acute (9) Diabetes mellitus: Code(s): E11.9 - Type 2 diabetes mellitus without complications Status: Acute Plan Pneumonia * Chest x-ray he with infiltrate * Recent COVID + 3 weeks ago * incentive spirometry while awake.? * influenza/COVID/RSV negative * Rocephin and Flagyl * CMP/CBC daily gastroenteritis * ?patient started have abdomen pain, nausea vomiting diarrhea * blood culture and stool culture pending * CT ABD Suspecting acute infective gastroenteritis * Received Zosyn in the ED * ?changes ceftriaxone Flagyl IV * Pain control * IV fluids * GI consulted * advance diet as tolerated * PPI 08/26 * EGD scheduled for today/ cancelled due to low EF Transaminitis-IMPROVING * ALT/AST with significant increase * and * f/u Hepatic panel * hepatitis panel * US pending * changed ABX therapy * GI consulted * Lactic 2.1/2.2 * Likely secondary to ischemia/cardiomyopathy 08/28: * US fatty liver, scant ascites, no obstruction * Enzymes trending down * Hepatitis panel negative Acute kidney injury secondary to dehydration * gentle hydration * hold lisinopril * Blood pressure soft, * ?possible due to inadequate intake and nausea vomiting * ?received normal saline bolus 3 L 08/27 * bumped Cr 1.6 * nitesh colored urine * BP improved resumed Imdur, BB and gave a dose of bumex IV * UA Elevated troponin * Current downtrend peaked at 0.067 * Likely ischemic demand * EKG with no acute changes * Echocardiogram EF <15% Cardiomyopathy * ECHO EF <15% * Pacemaker/ICD in place * secondary to radiation and chemo therapy 08/27: * Resumed patient Imdur, Bumex, and BB 08/28: * Cardiology consulted recommendations appreciated * soft BP * CXR f/U to determine fluid status * Diuretic vs Fluids 08/29: * Card's added: Lasix, increased Bumex, decreased BB Diabetes * ?Accu-Cheks a.c. HS * sliding scale insulin * hold oral diabetic medications * Hemoglobin A1c goal less than 7 pending * Diabetic diet * consult to dietitian * Optimize Daljit inhibitors and statins.? * Watch for hypoglycemia/hypoglycemic protocol ordered Code status:? Full code per patient DVT prophylaxis:? deborah
--- NOTE | 2023-08-30 09:18 | PM.IMPN ---
Progress Note: A&P Assessment and Plan (1) Nausea & vomiting: Qualifiers: Vomiting type: unspecified Qualified Code(s): R11.2 - Nausea with vomiting, unspecified Code(s): R11.2 - Nausea with vomiting, unspecified Status: Acute (2) Diarrhea: Qualifiers: Diarrhea type: unspecified type Qualified Code(s): R19.7 - Diarrhea, unspecified Code(s): R19.7 - Diarrhea, unspecified Status: Acute (3) KORIN (acute kidney injury): Code(s): N17.9 - Acute kidney failure, unspecified Status: Acute (4) Pneumonia: Qualifiers: Laterality: bilateral Lung location: unspecified part of lung Pneumonia type: aspiration pneumonia Code(s): J18.9 - Pneumonia, unspecified organism Status: Acute (5) Elevated liver transaminase level: Code(s): R74.01 - Elevation of levels of liver transaminase levels Status: Acute (6) Cardiomyopathy: Code(s): I42.9 - Cardiomyopathy, unspecified Status: Acute (7) Thrombocytopenia: Code(s): D69.6 - Thrombocytopenia, unspecified Status: Acute (8) Fatty liver: Code(s): K76.0 - Fatty (change of) liver, not elsewhere classified Status: Acute (9) Diabetes mellitus: Code(s): E11.9 - Type 2 diabetes mellitus without complications Status: Acute Plan Pneumonia Chest x-ray he with infiltrate Recent COVID + 3 weeks ago incentive spirometry while awake.? influenza/COVID/RSV negative Rocephin and Flagyl CMP/CBC daily gastroenteritis ?patient started have abdomen pain, nausea vomiting diarrhea blood culture and stool culture pending CT ABD Suspecting acute infective gastroenteritis Received Zosyn in the ED ?changes ceftriaxone Flagyl IV Pain control IV fluids GI consulted advance diet as tolerated PPI 08/26 EGD scheduled for today/ cancelled due to low EF Transaminitis-IMPROVING ALT/AST with significant increase and f/u Hepatic panel hepatitis panel US pending changed ABX therapy GI consulted Lactic 2.1/2.2 Likely secondary to ischemia/cardiomyopathy 08/28: US fatty liver, scant ascites, no obstruction Enzymes trending down Hepatitis panel negative Acute kidney injury secondary to dehydration gentle hydration hold lisinopril Blood pressure soft, ?possible due to inadequate intake and nausea vomiting ?received normal saline bolus 3 L 08/27 bumped Cr 1.6 nitesh colored urine BP improved resumed Imdur, BB and gave a dose of bumex IV UA Elevated troponin Current downtrend peaked at 0.067 Likely ischemic demand EKG with no acute changes Echocardiogram EF <15% Cardiomyopathy ECHO EF <15% Pacemaker/ICD in place secondary to radiation and chemo therapy 08/27: Resumed patient Imdur, Bumex, and BB 08/28: Cardiology consulted recommendations appreciated soft BP CXR f/U to determine fluid status Diuretic vs Fluids 08/29: Card's added: Lasix, increased Bumex, decreased BB Diabetes ?Accu-Cheks a.c. HS sliding scale insulin hold oral diabetic medications Hemoglobin A1c goal less than 7 pending Diabetic diet consult to dietitian Optimize Daljit inhibitors and statins.? Watch for hypoglycemia/hypoglycemic protocol ordered Code status:? Full code per patient DVT prophylaxis:? eliquis Stress ulcer prophylaxis:? Protonix 40 BID PT/OT notes:? PT/OT pending Disposition:??Patient admitted due to nausea vomiting and diarrhea with elevated troponins and PNA. Ruled out ACS will continue to treat for PNA.? Patient with acute elevated liver enzymes history of fatty liver/cardiomyopathy GI and cardiology consulted. Continue with diuresis, monitor patient renal function closely may need to deescalate some diuretics. Time Spent With Patient Time with patient: 15 - 25 minutes Subjective Date/time seen: 08/30/23 09:18 Interval history: Admission: Medical R
[2023-08-30 11:40] LABS: Glucose Point of Care 206 mg/dl (65-105)
[2023-08-30] MEDS: INSULIN ASPART (*BKC) 100 UNITS/ML SUB-Q (11:44)
--- NOTE | 2023-08-30 12:14 | PM.PNCARD ---
Progress Note: A&P Assessment and Plan (1) Cardiomyopathy: Code(s): I42.9 - Cardiomyopathy, unspecified Status: Acute Plan Acute on chronic systolic heart failure likely precipitated by IV fluids and volume overload on presentation Advanced cardiomyopathy Status post ICD KORIN Elevated liver enzymes likely related to cardiomyopathy and systemic congestion History of atrial fibrillation Diarrhea nausea vomiting on presentation Plan Continue apixaban 5 mg b.i.d. Continues digoxin 125 mcg per day Continue bumetanide 1 mg IV b.i.d. Continue eplerenone 25 mg daily DC metoprolol Continue Imdur Follow-up kidney function and electrolytes and liver function If the kidney function continued to do worse and liver enzymes are further elevated will consider adding Milrinone IV infusion Subjective Date/time seen: 08/30/23 12:14 Interval history: Continued to have shortness of breath with slight improvement today Review of Systems Review of Systems: All systems reviewed & are unremarkable except as noted in HPI and below Exam Const: General: comfortable and no acute distress Other: Able to lie flat Neck: Neck: supple and JVD Carotids: no bruits Resp: Auscultation: clear to auscultation bilaterally and lung sounds not diminished Other: No chest wall tenderness Cardio: Rate: regular rate Rhythm: regular rhythm Heart sounds: no gallops, no murmurs and no rubs GI: GI Palp: Yes Soft to palpation and No Tenderness to palpation present (GI) Auscultation: normal bowel sounds Skin: General skin exam: normal color, rashes and/or lesions noted and no erythema Other: Warm Objective Data Vital Signs Vital Signs: Vital Signs - 24 hr 08/29/23 12:54 08/29/23 14:00 08/29/23 16:00 Temperature 36.1 C L Pulse Rate 70 59 L 77 Respiratory Rate 22 H Blood Pressure 99/47 L Pulse Oximetry 92 Oxygen Delivery 08/29/23 18:15 08/29/23 21:13 08/29/23 21:30 Temperature 36.8 C 36.6 C Pulse Rate 76 73 73 Respiratory Rate 24 H 22 H Blood Pressure 110/68 103/73 Pulse Oximetry 96 97 Oxygen Delivery 08/30/23 00:00 08/30/23 04:26 08/30/23 06:00 Temperature 36.6 C Pulse Rate 69 70 85 Respiratory Rate 20 Blood Pressure 104/70 Pulse Oximetry 97 Oxygen Delivery 08/30/23 08:28 08/30/23 08:28 08/30/23 08:00 Temperature Pulse Rate 85 85 88 Respiratory Rate Blood Pressure Pulse Oximetry Oxygen Delivery 08/30/23 08:00 08/30/23 12:00 Temperature Pulse Rate 79 Respiratory Rate Blood Pressure Pulse Oximetry 97 Oxygen Delivery Room Air Intake/Output Intake/Output: Intake & Output 08/27/23 08/28/23 08/29/23 08/30/23 23:59 23:59 23:59 23:59 Intake Total 4260 3188 1470 730 Output Total 1050 2150 2975 Balance 3210 1038 -1505 730 Meds/Results Medications: Active Medications Generic Name Dose Route Start Last Admin Trade Name Freq PRN Reason Stop Dose Admin Acetaminophen 650 mg 08/26/23 10:15 08/29/23 21:18 Acetaminophen 325 Mg Tablet PO 650 mg Q4H PRN Administration Mild Pain (1-3) or Fever Apixaban 5 mg 08/26/23 21:00 08/30/23 08:28 Apixaban 5 Mg Tablet PO 5 mg Q12HR ZULLY Administration Aspirin 81 mg 08/27/23 08:00 08/30/23 08:28 Aspirin 81 Mg Chewable Tablet PO 81 mg DAILY@0800 ZULLY Administration Bumetanide 1 mg 08/28/23 19:00 08/29/23 08:16 Bumetanide 1 Mg Tablet PO 1 mg BID ZULLY Administration Bumetanide 1 mg 08/30/23 09:00 08/30/23 08:29 Bumetanide Inj 1 Mg/4 Ml Vial IV PUSH 1 mg BID ZULLY Administration Cyanocobalamin 5,000 mcg 08/27/23 09:00 08/30/23 08:28 Cyanocobalamin 1,000 Mcg Tablet PO 5,000 mcg DAILY ZULLY Administration Dextrose 12.5 gm 08/25/23 07:53 Dextrose 50% 25 Gm/50 Ml Syringe IV PUSH PRN PRN Hypoglycemia Protocol Digoxin 125 mcg 08/27/23 09:00 08/30/23 08:28 Digoxin Tab 125 Mcg Tablet PO 12
--- NOTE | 2023-08-30 12:55 | WPDGIPROGNO ---
Progress Note: A&P Assessment and Plan (1) Cardiomyopathy: Code(s): I42.9 - Cardiomyopathy, unspecified Status: Acute Assessment and Plan: probably explain most of his issues cardiology on board he already has aicd management per cadiology (2) Elevated liver transaminase level: Code(s): R74.01 - Elevation of levels of liver transaminase levels Status: Acute Assessment and Plan: hepatitis panel negative probably from severe systolic dysfunction imaging showed fatty liver, work up for other liver conditions pending will follow as needed (3) Fatty liver: Code(s): K76.0 - Fatty (change of) liver, not elsewhere classified Status: Acute (4) Diabetes mellitus: Code(s): E11.9 - Type 2 diabetes mellitus without complications Status: Acute (5) Nausea & vomiting: Qualifiers: Vomiting type: unspecified Qualified Code(s): R11.2 - Nausea with vomiting, unspecified Code(s): R11.2 - Nausea with vomiting, unspecified Status: Acute Assessment and Plan: resolved, no more nausea he is eating but poor appetite Subjective Date/time seen: 08/30/23 12:55 Interval history: no nausea but still poor appetite less fatigue Review of Systems Review of Systems: All systems reviewed & are unremarkable except as noted in HPI and below Exam Const: General: comfortable and no acute distress HENMT: Face/Nose/Sinus: Normal nares present and no epistaxis Mouth: Yes moist mucous membranes Eyes: Sclera: sclerae normal Pupils: Equal, round and reactive pupils present Neck: Neck: supple Resp: Auscultation: rales bilateral at the base Cardio: Rate: regular rate Rhythm: regular rhythm Heart sounds: no gallops GI: GI Palp: Yes Soft to palpation and No Tenderness to palpation present (GI) Auscultation: normal bowel sounds Skin: General skin exam: normal color and rashes and/or lesions noted Neuro: Cranial nerves: Yes Equal, round and reactive pupils present Speech: normal speech Extrem: General: no edema Objective Data Vital Signs Vital Signs: Vital Signs - 24 hr 08/29/23 14:00 08/29/23 16:00 08/29/23 18:15 Temperature 96.9 F L 98.3 F Pulse Rate 59 L 77 76 Respiratory Rate 22 H 24 H Blood Pressure 99/47 L 110/68 Pulse Oximetry 92 96 Oxygen Delivery 08/29/23 21:13 08/29/23 21:30 08/30/23 00:00 Temperature 97.8 F Pulse Rate 73 73 69 Respiratory Rate 22 H Blood Pressure 103/73 Pulse Oximetry 97 Oxygen Delivery 08/30/23 04:26 08/30/23 06:00 08/30/23 08:28 Temperature 97.9 F Pulse Rate 70 85 85 Respiratory Rate 20 Blood Pressure 104/70 Pulse Oximetry 97 Oxygen Delivery 08/30/23 08:28 08/30/23 08:00 08/30/23 08:00 Temperature Pulse Rate 85 88 Respiratory Rate Blood Pressure Pulse Oximetry 97 Oxygen Delivery Room Air 08/30/23 12:00 Temperature Pulse Rate 79 Respiratory Rate Blood Pressure Pulse Oximetry Oxygen Delivery Intake/Output Intake/Output: Intake & Output 08/27/23 08/28/23 08/29/23 08/30/23 23:59 23:59 23:59 23:59 Intake Total 4260 3188 1470 730 Output Total 1050 2150 2975 Balance 3210 1038 -1501 730 Meds/Results Medications: Active Medications Generic Name Dose Route Start Last Admin Trade Name Freq PRN Reason Stop Dose Admin Acetaminophen 650 mg 08/26/23 10:15 08/29/23 21:18 Acetaminophen 325 Mg Tablet PO 650 mg Q4H PRN Administration Mild Pain (1-3) or Fever Apixaban 5 mg 08/26/23 21:00 08/30/23 08:28 Apixaban 5 Mg Tablet PO 5 mg Q12HR ZULLY Administration Aspirin 81 mg 08/27/23 08:00 08/30/23 08:28 Aspirin 81 Mg Chewable Tablet PO 81 mg DAILY@0800 ZULLY Administration Bumetanide 1 mg 08/28/23 19:00 08/29/23 08:16 Bumetanide 1 Mg Tablet PO 1 mg BID ZULLY Administration Bumetanide 1 mg 08/30/23 09:00 08/30/23 08:29 Bumetanide Inj 1 Mg/4 Ml Vial IV PUSH 1 mg
[2023-08-30 16:07] LABS: Glucose Point of Care 196 mg/dl (65-105)
[2023-08-30] MEDS: ACETAMINOPHEN 325 MG TABLET 650 MG PO (20:07)
[2023-08-30 21:17] LABS: Glucose Point of Care 186 mg/dl (65-105)
[2023-08-31] VITALS (10 sets, daily range): BP systolic 110–118; BP diastolic 61–74; PULSE 68–95; RESP 16–18; TEMP 36–36.6; O2SAT 96–98
[2023-08-31] MEDS: AMPICILLIN SULB 1.5 GM/NS 50ML 1.5 GM/50 ML VIAL IVPB ×4 (05:31→23:20)
[2023-08-31] MEDS: LEVOTHYROXINE SODIUM 100 MCG TABLET PO (05:32)
[2023-08-31 06:31] LABS: Hematocrit 39.4 % (42.0-52.0); Hemoglobin 12.5 g/dL (14.0-18.0); Mean Corpuscular HGB Conc 31.7 g/dl (32-36); Mean Corpuscular Hemoglobin 29.8 pg (26-34); Mean Corpuscular Volume 93.8 fl (80-100); Mean Platelet Volume 11.3 fl (7.4-10.4); Platelet Count Result 164 k/mm3 (150-375); Red Cell Distribution Width 16.7 % (11.5-14.5); White Blood Count 7.8 K/mm3 (4.5-10.0)
[2023-08-31 06:48] LABS: Albumin Level 3.6 g/dL (3.5-5.1); Alkaline Phosphatase 150 U/L (38-126); Anion Gap 12 mmol/L (4-12); Aspartate Amino Transferase 571 U/L (17-59); Bilirubin,Total 0.8 mg/dL (0.2-1.3); Blood Urea Nitrogen 31 mg/dL (9-20); Calcium 8.3 mg/dL (8.4-10.2); Carbon Dioxide 17 mmol/L (22-30); Chloride 108 mmol/L (98-107); Estimated CRCL calculation 40 ml/min; Estimated Glomerular Filt Rate 37; Glucose 152 mg/dL (65-110); Potassium 3.5 mmol/L (3.4-5.0); Sodium 137 mmol/L (137-145)
[2023-08-31 07:19] LABS: Alanine Aminotransferase 1081 U/L (6-50)
[2023-08-31 07:41] LABS: Glucose Point of Care 140 mg/dl (65-105)
--- NOTE | 2023-08-31 08:19 | PM.PNCARD ---
Progress Note: A&P Assessment and Plan (1) Cardiomyopathy: Code(s): I42.9 - Cardiomyopathy, unspecified Status: Acute Plan Acute on chronic systolic heart failure likely precipitated by IV fluids and volume overload on presentation Advanced cardiomyopathy Status post ICD KORIN Elevated liver enzymes likely related to cardiomyopathy and systemic congestion - improving History of atrial fibrillation Diarrhea nausea vomiting on presentation Plan Continue apixaban 5 mg b.i.d. Continues digoxin 125 mcg per day Will shift back to p.o. bumex today Continue eplerenone 25 mg daily DC metoprolol Continue Imdur Follow-up kidney function and electrolytes and liver function He should have close follow up with his established acid regenerator following discharge Cardiology will sign off. Please call with questions. Subjective Date/time seen: 08/31/23 08:19 Interval history: Cardiology follow up for CHF Date of service 08/31/2023: He's feeling better today. No shortness of breath, able to lie flat without dyspnea. Edema nearly resolved. No chest pain or palpitations. Review of Systems Review of Systems: All systems reviewed & are unremarkable except as noted in HPI and below Exam Const: General: comfortable and no acute distress Other: Able to lie flat HENMT: Face/Nose/Sinus: Normal nares present and no epistaxis Mouth: Yes moist mucous membranes Eyes: Sclera: sclerae normal Pupils: Equal, round and reactive pupils present Neck: Neck: supple, JVD and no JVD Carotids: no bruits Resp: Auscultation: not clear to auscultation bilaterally, rales bilateral at the base and lung sounds not diminished Other: No chest wall tenderness Cardio: Rate: regular rate Rhythm: regular rhythm Heart sounds: no gallops, no murmurs and no rubs GI: Auscultation: normal bowel sounds Skin: General skin exam: normal color, rashes and/or lesions noted and no erythema Other: Warm Neuro: Cranial nerves: Yes Equal, round and reactive pupils present Speech: normal speech Other: No obvious focal deficit or facial asymmetry Extrem: Other: Normal capillary refills Intact distal pulses. Trace lower extremity edema Objective Data Vital Signs Vital Signs: Vital Signs - 24 hr 08/30/23 08:28 08/30/23 08:28 08/30/23 12:00 Temperature Pulse Rate 85 85 79 Respiratory Rate Blood Pressure Pulse Oximetry Oxygen Delivery 08/30/23 14:00 08/30/23 14:54 08/30/23 16:00 Temperature 36.6 C Pulse Rate 73 71 Respiratory Rate 20 Blood Pressure 84/42 L 99/60 L Pulse Oximetry 96 Oxygen Delivery 08/30/23 19:47 08/30/23 21:37 08/30/23 20:00 Temperature 36.5 C Pulse Rate 71 63 77 Respiratory Rate 20 20 Blood Pressure 104/65 Pulse Oximetry 96 95 Oxygen Delivery Room Air 08/31/23 00:00 08/31/23 04:00 08/31/23 06:00 Temperature 36.6 C Pulse Rate 73 76 68 Respiratory Rate 18 Blood Pressure 110/61 Pulse Oximetry 98 Oxygen Delivery Intake/Output Intake/Output: Intake & Output 08/28/23 08/29/23 08/30/23 08/31/23 23:59 23:59 23:59 23:59 Intake Total 3188 1470 2050 250 Output Total 2150 2975 900 825 Balance 5222 -3467 9014 -308 Meds/Results Medications: Active Medications Generic Name Dose Route Start Last Admin Trade Name Ruslan PRN Reason Stop Dose Admin Acetaminophen 650 mg 08/26/23 10:15 08/30/23 20:07 Acetaminophen 325 Mg Tablet PO 650 mg Q4H PRN Administration Mild Pain (1-3) or Fever Apixaban 5 mg 08/26/23 21:00 08/30/23 20:07 Apixaban 5 Mg Tablet PO 5 mg Q12HR ZULLY Administration Aspirin 81 mg 08/27/23 08:00 08/30/23 08:28 Aspirin 81 Mg Chewable Tablet PO 81 mg DAILY@0800 ZULLY Administration Bumetanide 1 mg 08/28/23 19:00 08/29/23 08:16 Bumetanide 1 Mg Tablet PO 1 mg BID ZULLY Administration Bumetanide 1 mg 08/30/23 09:00 08/30/23 16:42 Bumetanide Inj 1 Mg/
[2023-08-31] MEDS: DIGOXIN TAB 125 MCG TABLET PO (08:32)
[2023-08-31] MEDS: APIXABAN 5 MG TABLET PO ×2 (08:32→20:34)
[2023-08-31] MEDS: CHOLECALCIFEROL 1,000 UNITS TABLET 2000 UNITS PO (08:32)
[2023-08-31] MEDS: PANTOPRAZOLE 40 MG TABLET PO (08:33)
[2023-08-31] MEDS: GABAPENTIN 300 MG CAPSULE PO ×3 (08:33→20:35)
[2023-08-31] MEDS: ASPIRIN 81 MG CHEWABLE TABLET PO (08:33)
[2023-08-31] MEDS: ISOSORBIDE MONONITRATE 30 MG TAB.ER.24H PO (08:33)
[2023-08-31] MEDS: OMEGA 3 POLYUNSAT FATTY ACIDS 1 GM CAP PO ×2 (08:33→17:55)
[2023-08-31] MEDS: CYANOCOBALAMIN 1,000 MCG TABLET 5000 MCG PO (08:33)
[2023-08-31] MEDS: BUMETANIDE INJ 1 MG/4 ML VIAL IV PUSH (08:35)
--- NOTE | 2023-08-31 08:56 | P.PNIM_ITS ---
Progress Note: A&P Assessment and Plan (1) Nausea & vomiting: Qualifiers: Vomiting type: unspecified Qualified Code(s): R11.2 - Nausea with vomiting, unspecified Code(s): R11.2 - Nausea with vomiting, unspecified Status: Acute (2) Diarrhea: Qualifiers: Diarrhea type: unspecified type Qualified Code(s): R19.7 - Diarrhea, unspecified Code(s): R19.7 - Diarrhea, unspecified Status: Acute (3) KORIN (acute kidney injury): Code(s): N17.9 - Acute kidney failure, unspecified Status: Acute (4) Pneumonia: Qualifiers: Laterality: bilateral Lung location: unspecified part of lung Pneumonia type: aspiration pneumonia Code(s): J18.9 - Pneumonia, unspecified organism Status: Acute (5) Elevated liver transaminase level: Code(s): R74.01 - Elevation of levels of liver transaminase levels Status: Acute (6) Cardiomyopathy: Code(s): I42.9 - Cardiomyopathy, unspecified Status: Acute (7) Thrombocytopenia: Code(s): D69.6 - Thrombocytopenia, unspecified Status: Acute (8) Fatty liver: Code(s): K76.0 - Fatty (change of) liver, not elsewhere classified Status: Acute (9) Diabetes mellitus: Code(s): E11.9 - Type 2 diabetes mellitus without complications Status: Acute Plan Pneumonia * Chest x-ray he with infiltrate * Recent COVID + 3 weeks ago * incentive spirometry while awake.? * influenza/COVID/RSV negative * Rocephin and Flagyl * CMP/CBC daily gastroenteritis * ?patient started have abdomen pain, nausea vomiting diarrhea * blood culture and stool culture pending * CT ABD Suspecting acute infective gastroenteritis * Received Zosyn in the ED * ?changes ceftriaxone Flagyl IV * Pain control * IV fluids * GI consulted * advance diet as tolerated * PPI 08/26 * EGD scheduled for today/ cancelled due to low EF Transaminitis-IMPROVING * ALT/AST with significant increase * and * f/u Hepatic panel * hepatitis panel * US pending * changed ABX therapy * GI consulted * Lactic 2.1/2.2 * Likely secondary to ischemia/cardiomyopathy 08/28: * US fatty liver, scant ascites, no obstruction * Enzymes trending down * Hepatitis panel negative Acute kidney injury secondary to dehydration * gentle hydration * hold lisinopril * Blood pressure soft, * ?possible due to inadequate intake and nausea vomiting * ?received normal saline bolus 3 L 08/27 * bumped Cr 1.6 * nitesh colored urine * BP improved resumed Imdur, BB and gave a dose of bumex IV * UA 08/30: * Cr remains unchanged at 1.8 * Has anion-gap metabolic alkalosis, CO2 17. Secondary to recent low blood pressure and lactic acidosis. * Added Bicarb 325 mg PO BID Elevated troponin * Current downtrend peaked at 0.067 * Likely ischemic demand * EKG with no acute changes * Echocardiogram EF <15% Cardiomyopathy * ECHO EF <15% * Pacemaker/ICD in place * secondary to radiation and chemo therapy 08/27: * Resumed patient Imdur, Bumex, and BB 08/28: * Cardiology consulted recommendations appreciated * soft BP * CXR f/U to determine fluid status * Diuretic vs Fluids 08/29: * Card's added: Lasix, increased Bumex, decreased BB 08/30: * Cards discontinued BB. Will place on milrinone IV if Cr and LFTs worsen. Diabetes * ?Accu-Cheks a.c. HS * sliding scale insulin * hold oral diabetic medications * Hemoglobin A1c goal
--- NOTE | 2023-08-31 08:56 | PM.IMPN ---
Progress Note: A&P Assessment and Plan (1) Nausea & vomiting: Qualifiers: Vomiting type: unspecified Qualified Code(s): R11.2 - Nausea with vomiting, unspecified Code(s): R11.2 - Nausea with vomiting, unspecified Status: Acute (2) Diarrhea: Qualifiers: Diarrhea type: unspecified type Qualified Code(s): R19.7 - Diarrhea, unspecified Code(s): R19.7 - Diarrhea, unspecified Status: Acute (3) KORIN (acute kidney injury): Code(s): N17.9 - Acute kidney failure, unspecified Status: Acute (4) Pneumonia: Qualifiers: Laterality: bilateral Lung location: unspecified part of lung Pneumonia type: aspiration pneumonia Code(s): J18.9 - Pneumonia, unspecified organism Status: Acute (5) Elevated liver transaminase level: Code(s): R74.01 - Elevation of levels of liver transaminase levels Status: Acute (6) Cardiomyopathy: Code(s): I42.9 - Cardiomyopathy, unspecified Status: Acute (7) Thrombocytopenia: Code(s): D69.6 - Thrombocytopenia, unspecified Status: Acute (8) Fatty liver: Code(s): K76.0 - Fatty (change of) liver, not elsewhere classified Status: Acute (9) Diabetes mellitus: Code(s): E11.9 - Type 2 diabetes mellitus without complications Status: Acute Plan Pneumonia Chest x-ray he with infiltrate Recent COVID + 3 weeks ago incentive spirometry while awake.? influenza/COVID/RSV negative Rocephin and Flagyl CMP/CBC daily gastroenteritis ?patient started have abdomen pain, nausea vomiting diarrhea blood culture and stool culture pending CT ABD Suspecting acute infective gastroenteritis Received Zosyn in the ED ?changes ceftriaxone Flagyl IV Pain control IV fluids GI consulted advance diet as tolerated PPI 08/26 EGD scheduled for today/ cancelled due to low EF Transaminitis-IMPROVING ALT/AST with significant increase and f/u Hepatic panel hepatitis panel US pending changed ABX therapy GI consulted Lactic 2.1/2.2 Likely secondary to ischemia/cardiomyopathy 08/28: US fatty liver, scant ascites, no obstruction Enzymes trending down Hepatitis panel negative Acute kidney injury secondary to dehydration gentle hydration hold lisinopril Blood pressure soft, ?possible due to inadequate intake and nausea vomiting ?received normal saline bolus 3 L 08/27 bumped Cr 1.6 nitesh colored urine BP improved resumed Imdur, BB and gave a dose of bumex IV UA 08/30: Cr remains unchanged at 1.8 Has anion-gap metabolic alkalosis, CO2 17. Secondary to recent low blood pressure and lactic acidosis. 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 Will place on milrinone IV if Cr and LFTs worsen. Diabetes ?Accu-Cheks a.c. HS sliding scale insulin hold oral diabetic medications Hemoglobin A1c goal less than 7 pending Diabetic diet consult to dietitian Optimize Daljit inhibitors and statins.? Watch for hypoglycemia/hypoglycemic protocol ordered Code status:? Full code per patient DVT prophylaxis:? eliquis Stress ulcer prophylaxis:? Protonix 40 BID PT/OT notes:? PT/OT pending Disposition:??Patient admitted due to nausea vomiting and diarrhea with elevated troponins and PNA. Ruled out ACS will continue to treat for PNA.? Patient with acute elevated liver enzymes history of fatty liver/cardiomyopathy GI and cardiology consulted. Continue with di
[2023-08-31] MEDS: SODIUM BICARBONATE TAB 325 MG TABLET PO ×2 (09:42→17:56)
[2023-08-31 11:23] LABS: Glucose Point of Care 177 mg/dl (65-105)
[2023-08-31 14:43] LABS: Ceruloplasmin 33 mg/dL (14-30)
[2023-08-31 16:44] LABS: Glucose Point of Care 191 mg/dl (65-105)
[2023-08-31] MEDS: AMOXICILLIN/CLAVULANATE K 875-125 MG TAB 1 TABLET PO (17:55)
[2023-08-31] MEDS: BUMETANIDE 1 MG TABLET PO (17:55)
[2023-08-31 20:33] LABS: Glucose Point of Care 217 mg/dl (65-105)
[2023-09-01 00:02] VITALS: PULSE 100
[2023-09-01 04:03] VITALS: PULSE 94
[2023-09-01] MEDS: ACETAMINOPHEN 325 MG TABLET 650 MG PO (04:41)
[2023-09-01] MEDS: LEVOTHYROXINE SODIUM 100 MCG TABLET PO (05:33)
[2023-09-01] MEDS: AMPICILLIN SULB 1.5 GM/NS 50ML 1.5 GM/50 ML VIAL IVPB (05:33)
[2023-09-01 05:59] VITALS: BP 101/72; PULSE 66; RESP 17; TEMP 36.4; O2SAT 97
[2023-09-01 06:44] LABS: Hematocrit 37.8 % (42.0-52.0); Mean Corpuscular HGB Conc 31.7 g/dl (32-36); Mean Corpuscular Hemoglobin 30.3 pg (26-34); Mean Corpuscular Volume 95.5 fl (80-100); Mean Platelet Volume 11.6 fl (7.4-10.4); Platelet Count Result 161 k/mm3 (150-375); Red Blood Count 3.96 M/mm3 (4.6-6.20); Red Cell Distribution Width 16.9 % (11.5-14.5); White Blood Count 6.6 K/mm3 (4.5-10.0)
[2023-09-01 07:01] LABS: Albumin Level 3.2 g/dL (3.5-5.1); Alkaline Phosphatase 126 U/L (38-126); Anion Gap 10 mmol/L (4-12); Aspartate Amino Transferase 216 U/L (17-59); Bilirubin,Total 0.7 mg/dL (0.2-1.3); Blood Urea Nitrogen 27 mg/dL (9-20); Calcium 8.1 mg/dL (8.4-10.2); Carbon Dioxide 22 mmol/L (22-30); Chloride 105 mmol/L (98-107); Estimated CRCL calculation 47 ml/min; Estimated Glomerular Filt Rate 46; Glucose 168 mg/dL (65-110); Potassium 3.3 mmol/L (3.4-5.0); Sodium 137 mmol/L (137-145)
[2023-09-01 07:10] LABS: Alanine Aminotransferase 826 U/L (6-50)
[2023-09-01 07:36] LABS: Glucose Point of Care 164 mg/dl (65-105)
[2023-09-01 08:00] VITALS: PULSE 94
--- NOTE | 2023-09-01 09:12 | P.DS_ITS ---
DS: Admitting Diagnosis Discharge Date 09/01/2023 Admitting Diagnosis Pneumonia/SOB/Weakness/cardiomyopathy/transaminitis/KORIN DS: Discharge Diagnosis Discharge Diagnosis (1) Nausea & vomiting: Qualifiers: Vomiting type: unspecified Qualified Code(s): R11.2 - Nausea with vomiting, unspecified Code(s): R11.2 - Nausea with vomiting, unspecified Status: Acute (2) Diarrhea: Qualifiers: Diarrhea type: unspecified type Qualified Code(s): R19.7 - Diarrhea, unspecified Code(s): R19.7 - Diarrhea, unspecified Status: Acute (3) KORIN (acute kidney injury): Code(s): N17.9 - Acute kidney failure, unspecified Status: Acute (4) Pneumonia: Qualifiers: Laterality: bilateral Lung location: unspecified part of lung Pneumonia type: aspiration pneumonia Code(s): J18.9 - Pneumonia, unspecified organism Status: Acute (5) Elevated liver transaminase level: Code(s): R74.01 - Elevation of levels of liver transaminase levels Status: Acute (6) Cardiomyopathy: Code(s): I42.9 - Cardiomyopathy, unspecified Status: Acute (7) Thrombocytopenia: Code(s): D69.6 - Thrombocytopenia, unspecified Status: Acute (8) Fatty liver: Code(s): K76.0 - Fatty (change of) liver, not elsewhere classified Status: Acute (9) Diabetes mellitus: Code(s): E11.9 - Type 2 diabetes mellitus without complications Status: Acute Plan Pneumonia * Chest x-ray he with infiltrate * Recent COVID + 3 weeks ago * incentive spirometry while awake.? * influenza/COVID/RSV negative * Rocephin and Flagyl * CMP/CBC daily gastroenteritis * ?patient started have abdomen pain, nausea vomiting diarrhea * blood culture and stool culture pending * CT ABD Suspecting acute infective gastroenteritis * Received Zosyn in the ED * ?changes ceftriaxone Flagyl IV * Pain control * IV fluids * GI consulted * advance diet as tolerated * PPI 08/26 * EGD scheduled for today/ cancelled due to low EF Transaminitis-IMPROVING * ALT/AST with significant increase * and * f/u Hepatic panel * hepatitis panel * US pending * changed ABX therapy * GI consulted * Lactic 2.1/2.2 * Likely secondary to ischemia/cardiomyopathy 08/28: * US fatty liver, scant ascites, no obstruction * Enzymes trending down * Hepatitis panel negative Acute kidney injury secondary to dehydration * gentle hydration * hold lisinopril * Blood pressure soft, * ?possible due to inadequate intake and nausea vomiting * ?received normal saline bolus 3 L 08/27 * bumped Cr 1.6 * nitesh colored urine * BP improved resumed Imdur, BB and gave a dose of bumex IV * UA 08/30: * Cr remains unchanged at 1.8 * Has anion-gap metabolic alkalosis, CO2 17. Secondary to recent low blood pressure and lactic acidosis. * Added Bicarb 325 mg PO BID Elevated troponin * Current downtrend peaked at 0.067 * Likely ischemic demand * EKG with no acute changes * Echocardiogram EF <15% Cardiomyopathy * ECHO EF <15% * Pacemaker/ICD in place * secondary to radiation and chemo therapy 08/27: * Resumed patient Imdur, Bumex, and BB 08/28: * Cardiology consulted recommendations appreciated * soft BP * CXR f/U to determine fluid status * Diuretic vs Fluids 08/29: * Card's added: Lasix, increased Bumex, decreased BB 08/30: * Cards discontinued BB. Will place on milrin
--- NOTE | 2023-09-01 09:12 | PM.DS ---
DS: Admitting Diagnosis Discharge Date 09/01/2023 Admitting Diagnosis Pneumonia/SOB/Weakness/cardiomyopathy/transaminitis/KORIN DS: Discharge Diagnosis Discharge Diagnosis (1) Nausea & vomiting: Qualifiers: Vomiting type: unspecified Qualified Code(s): R11.2 - Nausea with vomiting, unspecified Code(s): R11.2 - Nausea with vomiting, unspecified Status: Acute (2) Diarrhea: Qualifiers: Diarrhea type: unspecified type Qualified Code(s): R19.7 - Diarrhea, unspecified Code(s): R19.7 - Diarrhea, unspecified Status: Acute (3) KORIN (acute kidney injury): Code(s): N17.9 - Acute kidney failure, unspecified Status: Acute (4) Pneumonia: Qualifiers: Laterality: bilateral Lung location: unspecified part of lung Pneumonia type: aspiration pneumonia Code(s): J18.9 - Pneumonia, unspecified organism Status: Acute (5) Elevated liver transaminase level: Code(s): R74.01 - Elevation of levels of liver transaminase levels Status: Acute (6) Cardiomyopathy: Code(s): I42.9 - Cardiomyopathy, unspecified Status: Acute (7) Thrombocytopenia: Code(s): D69.6 - Thrombocytopenia, unspecified Status: Acute (8) Fatty liver: Code(s): K76.0 - Fatty (change of) liver, not elsewhere classified Status: Acute (9) Diabetes mellitus: Code(s): E11.9 - Type 2 diabetes mellitus without complications Status: Acute Plan Pneumonia Chest x-ray he with infiltrate Recent COVID + 3 weeks ago incentive spirometry while awake.? influenza/COVID/RSV negative Rocephin and Flagyl CMP/CBC daily gastroenteritis ?patient started have abdomen pain, nausea vomiting diarrhea blood culture and stool culture pending CT ABD Suspecting acute infective gastroenteritis Received Zosyn in the ED ?changes ceftriaxone Flagyl IV Pain control IV fluids GI consulted advance diet as tolerated PPI 08/26 EGD scheduled for today/ cancelled due to low EF Transaminitis-IMPROVING ALT/AST with significant increase and f/u Hepatic panel hepatitis panel US pending changed ABX therapy GI consulted Lactic 2.1/2.2 Likely secondary to ischemia/cardiomyopathy 08/28: US fatty liver, scant ascites, no obstruction Enzymes trending down Hepatitis panel negative Acute kidney injury secondary to dehydration gentle hydration hold lisinopril Blood pressure soft, ?possible due to inadequate intake and nausea vomiting ?received normal saline bolus 3 L 08/27 bumped Cr 1.6 nitesh colored urine BP improved resumed Imdur, BB and gave a dose of bumex IV UA 08/30: Cr remains unchanged at 1.8 Has anion-gap metabolic alkalosis, CO2 17. Secondary to recent low blood pressure and lactic acidosis. 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 Will place on milrinone IV if Cr and LFTs worsen. Diabetes ?Accu-Cheks a.c. HS sliding scale insulin hold oral diabetic medications Hemoglobin A1c goal less than 7 pending Diabetic diet consult to dietitian Optimize Daljit inhibitors and statins.? Watch for hypoglycemia/hypoglycemic protocol ordered Disposition:??Patient discharged to home DS: Summary Hospital Course Reason for hospitalization: Pneumonia/SOB/Weakness/cardiomyopathy/transaminitis/KORIN Hospital Course: Interval history: Admission:? Medical Record This is a 72-year-old mal
[2023-09-01] MEDS: APIXABAN 5 MG TABLET PO (09:23)
[2023-09-01] MEDS: OMEGA 3 POLYUNSAT FATTY ACIDS 1 GM CAP PO (09:23)
[2023-09-01] MEDS: CYANOCOBALAMIN 1,000 MCG TABLET 5000 MCG PO (09:23)
[2023-09-01 09:24] VITALS: PULSE 91
[2023-09-01] MEDS: DIGOXIN TAB 125 MCG TABLET PO (09:24)
[2023-09-01] MEDS: GABAPENTIN 300 MG CAPSULE PO (09:24)
[2023-09-01] MEDS: PANTOPRAZOLE 40 MG TABLET PO (09:24)
[2023-09-01] MEDS: CHOLECALCIFEROL 1,000 UNITS TABLET 2000 UNITS PO (09:25)
[2023-09-01] MEDS: ISOSORBIDE MONONITRATE 30 MG TAB.ER.24H PO (09:25)
[2023-09-01] MEDS: BUMETANIDE 1 MG TABLET PO (09:25)
[2023-09-01] MEDS: ASPIRIN 81 MG CHEWABLE TABLET PO (09:25)
[2023-09-01] MEDS: SODIUM BICARBONATE TAB 325 MG TABLET PO (09:25)
[2023-09-01] MEDS: AMOXICILLIN/CLAVULANATE K 875-125 MG TAB 1 TABLET PO (09:25)
[2023-09-01 11:20] LABS: Glucose Point of Care 265 mg/dl (65-105)
[2023-09-01] MEDS: INSULIN ASPART (*BKC) 100 UNITS/ML SUB-Q (13:11)
[2023-09-03 13:28] LABS: Actin Antibody (IgG) <20 U (<20); LKM 1 Antibody <=20.0 U (<=20.0)
[2023-09-12 02:34] LABS: Mitochondrial (M2) Ab (IgG) <20.0 U
== END 2023-09-01 14:05 | disposition home or self-care (01) | DRG 193 ==
LOC: ANHED 23:17 → ANHIMU 23:36 → ANH3MEDSUR 08-27 14:52
PROVIDERS: Emergency Medicine; General Practice; Hospitalist; Internal Medicine Gastroenterology; Admitting Provider Internal Medicine; Emergency Provider Physician Assistant; Visit Provider Nurse Practitioner Family
DX: J18.9 Pneumonia, unspecified organism (principal); I50.23 Acute on chronic systolic (congestive) heart failure; I13.0 Hypertensive heart and chronic kidney disease with heart failure and stage 1 through stage 4 chronic kidney disease, or unspecified chronic kidney disease; N17.9 Acute kidney failure, unspecified; I24.89 Other forms of acute ischemic heart disease; I42.7 Cardiomyopathy due to drug and external agent; T45.1X5A Adverse effect of antineoplastic and immunosuppressive drugs, initial encounter; I25.10 Atherosclerotic heart disease of native coronary artery without angina pectoris; N18.9 Chronic kidney disease, unspecified; K52.9 Noninfective gastroenteritis and colitis, unspecified; E86.0 Dehydration; E11.22 Type 2 diabetes mellitus with diabetic chronic kidney disease; E78.5 Hyperlipidemia, unspecified; D69.6 Thrombocytopenia, unspecified; K76.0 Fatty (change of) liver, not elsewhere classified; R74.01 Elevation of levels of liver transaminase levels; I25.2 Old myocardial infarction; Z92.3 Personal history of irradiation; Z79.01 Long term (current) use of anticoagulants; Z95.5 Presence of coronary angioplasty implant and graft; Z79.4 Long term (current) use of insulin; Z79.82 Long term (current) use of aspirin; Z95.810 Presence of automatic (implantable) cardiac defibrillator
CPT/HCPCS: 36415; 71045; 71046; 74177; 76705; 80048; 80053; 80074; 81001; 82104; 82140; 82390; 82948; 83036; 83520; 83605; 83690; 83735; 84100; 84484; 85025; 85027; 85055; 85610; 85730; 86364; 86376; 87040; 87637; 93005; 93306; 96365; 97116; 97161; 97165; 99285; A9270; G0378; J0295; J0696; J1815; J1836; J1939; J1940; J2543; J7030; J7120; Q9967